=== PATIENT | male | born 1955 | race Caucasian/White ===

== ENCOUNTER → 2021-04-09 11:13 | Outpatient (BNVA) | payer MEDICARE, MEDICAID, SELFPAY | PROVIDERS: PCP Internal Medicine; Visit Provider Nurse Practitioner Family | DX: G62.9 Polyneuropathy, unspecified (principal); G25.81 Restless legs syndrome; R25.1 Tremor, unspecified; R90.82 White matter disease, unspecified; M54.2 Cervicalgia | CPT/HCPCS: 99212 ==

== ENCOUNTER → 2021-06-30 08:45 | Outpatient (BNVA) | payer MEDICARE, MEDICAID, SELFPAY | PROVIDERS: Visit Provider Nurse Practitioner Family | DX: G25.81 Restless legs syndrome (principal); G62.9 Polyneuropathy, unspecified; R90.82 White matter disease, unspecified | CPT/HCPCS: 99212 ==

== ENCOUNTER → 2021-10-06 08:37 | Outpatient (BNVA) | payer MEDICARE, MEDICAID, SELFPAY | PROVIDERS: Visit Provider Nurse Practitioner Family | DX: Z09 Encounter for follow-up examination after completed treatment for conditions other than malignant neoplasm (principal); G25.81 Restless legs syndrome; R56.9 Unspecified convulsions; G62.9 Polyneuropathy, unspecified; R51.9 Headache, unspecified | CPT/HCPCS: 99212 ==

== ENCOUNTER → 2022-01-14 07:46 | Outpatient (BNVA) | payer MEDICARE, MEDICAID, SELFPAY | PROVIDERS: Visit Provider Nurse Practitioner Family | DX: G25.81 Restless legs syndrome (principal); R56.9 Unspecified convulsions; G45.9 Transient cerebral ischemic attack, unspecified; R51.9 Headache, unspecified | CPT/HCPCS: 99212 ==

== ENCOUNTER → 2022-03-27 09:34 | Outpatient (BNVA) | payer MEDICARE, MEDICAID, SELFPAY | PROVIDERS: PCP Physician Assistant; Visit Provider Dietitian, Registered | DX: E11.22 Type 2 diabetes mellitus with diabetic chronic kidney disease (principal); N18.4 Chronic kidney disease, stage 4 (severe); Z71.3 Dietary counseling and surveillance | CPT/HCPCS: 97802 ==

== ENCOUNTER → 2022-04-15 07:35 | Outpatient (BNVA) | payer MEDICARE, MEDICAID, SELFPAY | PROVIDERS: PCP Physician Assistant; Visit Provider Nurse Practitioner Family | DX: R56.9 Unspecified convulsions (principal); R51.9 Headache, unspecified; G45.9 Transient cerebral ischemic attack, unspecified; G25.81 Restless legs syndrome | CPT/HCPCS: 99212 ==

== ENCOUNTER → 2022-08-13 07:39 | Outpatient (BNVA) | payer MEDICARE, MEDICAID, SELFPAY | PROVIDERS: PCP Physician Assistant; Visit Provider Nurse Practitioner Family | DX: G25.81 Restless legs syndrome (principal); R56.9 Unspecified convulsions; R51.9 Headache, unspecified | CPT/HCPCS: 99212 ==

== ENCOUNTER 2022-12-15 10:26 | Outpatient (AMB) | payer MEDICARE, MEDICAID, SELFPAY ==
--- NOTE | 2022-12-15 10:29 | A.OFFVIS_ITS ---
Intake Vital Signs 12/15/22 10:41 Height 5 ft 9 in Weight 203 lb BMI 30.0 BP 128/74 Blood Pressure Location Rt brachial Position Sitting Pulse 72 Pulse Source Pulse Oximeter Pulse Oximetry (%) 99 Oxygen Delivery Method Room Air Intake Visit Reasons: 4M restless leg-lvm Intake Note: Patient presents for 4 month restless leg, Patient states they have gotten worst since going on dialysis. Allergies acetaminophen [From Vicodin] Allergy (Mild, Verified 12/15/22 10:42) unknown aspirin Allergy (Mild, Verified 12/15/22 10:42) unknown hydrocodone [From Vicodin] Allergy (Mild, Verified 12/15/22 10:42) unknown ibuprofen Allergy (Mild, Verified 12/15/22 10:42) unknown Medication List - Last Reconciled 12/15/22 by SUDEEP Mei amlodipine mg PO ONCE atorvastatin 40 mg PO DAILY carvedilol 12.5 mg PO BID chlorthalidone mg PO ONCE diclofenac sodium 1% 2 - 4 grams topical QID PRN 14 days docusate sodium (Colace) 100 mg PO BID PRN 30 days duloxetine 60 mg PO DAILY 30 days famotidine mg PO ONCE furosemide 20 mg PO DAILY hydralazine 25 mg PO DAILY insulin aspart U-100 (Novolog FlexPen U-100 Insulin aspart) subcut insulin glargine (Lantus Solostar U-100 Insulin) units subcut levetiracetam 500 mg PO BID 30 days levothyroxine mcg PO ONCE lisinopril mg PO DAILY nifedipine ER mg PO oxycodone 5 - 10 mg (1 - 2 x 5 mg) PO BEDTIME 30 days pen needle, diabetic (BD Ultra-Fine Mini Pen Needle) As directed riboflavin (vitamin B2) 400 mg PO DAILY 30 days sennosides (senna) 17.2 mg (2 x 8.6 mg) PO BEDTIME PRN 30 days tacrolimus 0.5 mg PO BID tacrolimus 1 mg PO BID tamsulosin mg PO HPI HPI Comments History of Present Illness Details 67-yr-old male presents for f/u visit. Pt endorses the following interval medical history changes: Shortly after his last visit, he had a hospitalization for inability to void. He states he was found to be in fluid overload d/t ESRD. Pt has since started on hemodialysis, which he is overall tolerating well. He states he slowly weaned off his diabetic meds- as his blood sugras were running low and his PCP agreed to stop them w/ his HgA1C < 6%. He does not taht his RLS s/s are worse when he is at dialysis (4 hr session 3 x's per week) and for the rest of the day after dialysis. He may still have some leg cramps while at dialysis- he does continue on his Mag supplement. He feels that he just has to let his body relax. He waits to take the oxycodone until the end of the day. He is having increased braun-back/neck pain which moves throughout the spine. This is worse since starting dialysis. He is overall weaker, has less endurance. Notes he was previously used to being active- always had something to do, but now he has dialysis and is not doing as much overall. No interval seizures. PFSH Medical History HLD (hyperlipidemia) Surgical History History of carpal tunnel surgery Hx of liver transplant Social History Alcohol intake: former Patient Tobacco Use Status: Former Tobacco user Quit Date: 30-35 years ago. Substance Use Type: Marijuana Review of Systems Const All systems reviewed & are unremarkable except as noted in HPI and below Physical Exam Vital Signs: Last Vital Signs Pulse 72 12/15/22 10:41 BP 128/74 12/15/22 10:41 Pulse Ox 99 12/15/22 10:41 Oxygen Delivery Method Room Air 12/15/22 10:41 BMI result Body Mass Index 30.0 Const General: cooperative and no acute distress Orientation/consciousness: patient oriented x3 HEENT Head: Yes normocephalic Resp Effort & Inspection: normal respiratory effort and able to speak in complete sentences Neuro Other: Slow to stand, steady slow gait General: patient oriented x3 and CN's II-XI intact bilaterally Cognition (Neuro): normal cognition Motor exam (neuro): 5/5 motor strength present throughout Deep tendon reflexes (DTR's): Right triceps reflex intensity grade: 2+, Left triceps reflex intensity grade: 2+, Rt Biceps (C5, C6): 2+, Left biceps reflex intensity grade: 2+, Right brachioradialis reflex intensity grade: 2+, Left brachioradialis reflex intensity grade: 2+, Right patellar reflex intensity grade: 1+ and Left patellar reflex intensity grade: 1+ Psych Appearance: grossly normal Mental Status: mental status grossly normal Speech and movement: Normal speech and movement present Affect: normal affect Attitude: cooperative Thought process: Normal thought process present Thought content: Normal thought content present Insight: Good insight present (Psych) Judgement: Good judgement present (Psych) Assessment & Plan Assessment & Plan (1) Restless leg syndrome: Code(s): G25.81 - Restless legs syndrome (2) Cervicalgia: Comment: Moderate multilevel degenerative spondyloarthropathy. Code(s): M54.2 - Cervicalgia (3) TIA (transient ischemic attack): Comment: Oct 2021. Code(s): G45.9 - Transient cerebral ischemic attack, unspecified (4) Convulsion: Comment: ? seizure, ? functional non-epileptic seizure Code(s): R56.9 - Unspecified convulsions Plan For neck and back pain- Will refer to pain management. Will request previous imaging from [facility]. ? For RLS: Add Oxycodone 5-10mg prior to dialysis treatment (or alternately 5mg before and 5mg after dialysis). Continue Oxycodone 5-10mg qhs. For h/o TIA: Continue to optimize CV risk reduction strategies: ASA 81mg qhs, Atorvastatin 40mg qhs, BP regimen, dialysis Pt has wenaed off his diabetes medications- last HgA1C was < 6% Continue f/u w/ renal. ? For seizure: Continue Keppra 500mg bid. ? For headache: Continue riboflavin and magnesium as needed for headache. ? f/u in 3-4 months or sooner with any new/worsening s/s. Orders: Referrals Pain Management Referral M54.2 - Cervicalgia, M54.9 - Dorsalgia, unspecified Medications: Changed From oxycodone quantity may be filled for less 5 - 10 mg (1 - 2 x 5 mg) PO BEDTIME 30 days 60 tabs 0RF restless leg(s) To oxycodone 1-2 tabs qhs and 1-2 tabs 3 x's per week prior to dialysis orally .; quantity may be filled for less 28 days 80 tabs 0RF restless leg(s) Coding Level of Care Code Est Pt Level 4 (75874) Diagnoses Restless leg syndrome G25.81 Cervicalgia M54.2 TIA (transient ischemic attack) G45.9 Convulsion R56.9
[2022-12-15 10:41] VITALS: BP 128/74; PULSE 72; O2SAT 99
== END 2022-12-15 11:14 | disposition home or self-care (01) ==
PROVIDERS: PCP Physician Assistant; Visit Provider Nurse Practitioner Family
DX: G25.81 Restless legs syndrome (principal); M54.2 Cervicalgia; G45.9 Transient cerebral ischemic attack, unspecified; R56.9 Unspecified convulsions
CPT/HCPCS: 99214

== ENCOUNTER → 2022-12-15 10:26 | Outpatient (BNVA) | payer MEDICARE, MEDICAID, SELFPAY | PROVIDERS: PCP Physician Assistant; Visit Provider Nurse Practitioner Family | DX: G25.81 Restless legs syndrome (principal); R56.9 Unspecified convulsions; M54.2 Cervicalgia; G45.9 Transient cerebral ischemic attack, unspecified | CPT/HCPCS: 99212 ==

== ENCOUNTER 2023-02-04 11:28 | Outpatient (REF) | payer OTHER, SELFPAY ==
--- NOTE | ~2023-02-04 | MR_ITS ---
EXAMINATION: MR CERVICAL SPINE WITHOUT CONTRAST CLINICAL INFORMATION: 67-year-old with neck pain radiating down back and between shoulder blades. History of spinal stenosis. COMPARISON: 06/18/2020 MRI. TECHNIQUE: MRI of the cervical spine was obtained using routine sequences without contrast. FINDINGS: ALIGNMENT: Redemonstrated is lordotic reversal centered at C6-C7 stable in appearance. Slight retrolisthesis at C3-C4 is stable. CRANIOCERVICAL JUNCTION/C1-C2 ARTICULATIONS: Intact and aligned. VISUALIZED INTRACRANIAL STRUCTURES: Small focus of low T1/high T2 linear signal in the lesley is stable from previous exam and is consistent with a small chronic infarct as noted on previous MRI of the brain. VERTEBRAL BODIES: Stable vertebral body heights. No interval compression fractures. DISC SPACES AND ENDPLATES: There is predominant ankylosis at the C6-C7 intervertebral disc space with marginal osteophytic ridging with severe disc space height loss, disc desiccation, Schmorl's nodes and spondylosis at C7-T1 stable in appearance. Bfadsqup-rb-pxkrrh disc space height loss at C5-C6 slightly progressed from previous exam with disc desiccation, Schmorl's nodes and spondylosis. Ccnyijnf-hc-sgeojd disc space height loss at C3-C4 progressed from previous study. Schmorl's nodes, disc desiccation and spondylosis at this level also noted. BONE MARROW: No bone marrow edema. Diffusely heterogeneous bone marrow signal intensity seen throughout the osseous structures similar to the previous exam is a nonspecific finding. Degenerative fatty marrow signal changes noted at C6 and C7 and at the C7-T1 and C5-C6 endplates unchanged. Type II marrow signal changes along the endplates at C3-C4 are new since the previous exam. C2-C3: No disc herniation or canal stenosis. Ligamentum flavum thickening noted with minor facet arthropathy without significant neural foraminal stenosis. C3-C4: Broad-based disc osteophyte complex similar to the previous exam, with effacement of the ventral dural sac, with ventral cord impingement progressed from previous study. Ligamentum flavum thickening has progressed from previous exam. There is wivylovp-kp-ppgawd central spinal canal stenosis also progressed from previous exam. No cord edema or syrinx. There is uncovertebral spurring and facet arthropathy bilaterally with severe left-sided and hthhlfgx-ei-raevrb right-sided neural foraminal stenosis progressed from previous study. C4-C5: Central to right paramedian disc protrusion with encroachment on the ventral dural sac and mild right-sided ventral cord deformity stable in appearance. Ligamentum flavum thickening has progressed from previous exam now with moderate central spinal canal stenosis slightly progressed. There is uncovertebral spurring and facet arthropathy more prominent on current study, with moderate bilateral neural foraminal stenosis, progressed from previous study. C5-C6: Broad-based disc osteophyte complex is again noted with flattening of the ventral dural sac asymmetric to the right with acrq-wd-epqyngbm right-sided ventral cord deformity/cord volume loss and moderate spinal canal stenosis largely unchanged. There is uncovertebral spurring bilaterally with severe right-sided and xmswngkh-so-qtusdm left-sided neural foraminal stenosis largely unchanged. C6-C7: Ankylosis of the intervertebral disc space with posterior osteophytic ridging and flattening of the dural sac is largely unchanged without cord impingement. Mild central spinal canal narrowing is unchanged. Fxpa-dx-vukiifdj right-sided neural foraminal stenosis is stable. C7-T1: Broad-based posterolateral disc osteophyte complex noted bilaterally, right more than left similar to the previous exam with slight flattening of the dural sac without cord impingement or canal stenosis. There is mild facet arthrosis bilaterally unchanged with moderate right and mild left-sided foraminal stenosis stable in appearance. T1-T2: No disc herniation or canal stenosis. No significant DJD or neural foraminal stenosis. SPINAL CORD: The cervical and visualized upper thoracic spinal cord shows faintly increased T2 signal intensity on the sagittal STIR images at the C3-C4 level but less evident on the current study than on the prior exam, suggesting spondylitic myelopathy in conjunction with the above findings. Otherwise normal signal intensity. EXTRACRANIAL SOFT TISSUES: The visualized extracranial head/neck soft tissues are unremarkable within the limitations of the study. Normal signal voids are seen in the visualized major arterial and venous structures. Note is made of a 0.8 x 0.6 cm cystic-appearing lesion in the superficial lobe of the left parotid gland increased in size from the previous exam. Recommend correlation with ultrasound. MR/MR cervical spine wo con IMPRESSION: 1. Lordotic reversal centered at C6-C7 stable in appearance with slight retrolisthesis at C3-C4 stable in appearance. 2. Multilevel DDD and spondylosis with some progression of disc space height loss at C3-C4 and C5-C6 with multilevel disc osteophyte complexes and disc protrusions as described above with progression of spinal canal stenosis at C3-C4 and stable right-sided ventral cord deformity at C4-C5 with progression of spinal canal stenosis at C4-C5 now with moderate central spinal canal stenosis at this level. Moderate spinal canal stenosis C5-C6 and mild spinal canal stenosis at C6-C7 are stable. Cord compression at C3-C4 has progressed. 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 3. Multilevel DJD with multilevel bilateral neural foraminal stenosis as detailed by level above, with progression at C3-C4 and C4-C5 but otherwise stable at other levels. 4. Subcentimeter cystic-appearing lesion in the superficial lobe of the left parotid gland increased in size from previous exam. Recommend correlation with ultrasound to further assess this. Cannot exclude a parotid neoplasm. The [facility] staff will call to confirm receipt of this report with acknowledgement of the findings and any recommendations.
== END 2023-02-04 11:29 | disposition home or self-care (01) ==
LOC: HO.MRI 11:28
PROVIDERS: Visit Provider Nurse Practitioner Family
DX: M54.2 Cervicalgia (principal); M48.02 Spinal stenosis, cervical region; M14.68 Charcot's joint, vertebrae
CPT/HCPCS: 72141

== ENCOUNTER 2023-03-04 12:16 | Outpatient (AMB) | payer OTHER, SELFPAY ==
--- NOTE | 2023-03-04 13:07 | A.OFFVIS_ITS ---
Intake Vital Signs 03/04/23 13:08 Height 5 ft 9 in Weight 206 lb 4 oz BMI 30.5 BP 118/60 Blood Pressure Location Rt brachial Position Sitting Respiration 16 Pulse 68 Pulse Source Pulse Oximeter Pulse Oximetry (%) 94 Oxygen Delivery Method Room Air Intake Visit Reasons: Dorsalgia /Lvm Allergies acetaminophen [From Vicodin] Allergy (Mild, Verified 03/04/23 12:59) unknown aspirin Allergy (Mild, Verified 03/04/23 12:59) unknown hydrocodone [From Vicodin] Allergy (Mild, Verified 03/04/23 12:59) unknown ibuprofen Allergy (Mild, Verified 03/04/23 12:59) unknown HPI HPI Comments History of Present Illness Details Dave is a very pleasant 67-year-old male who presents the office today for evaluation management of his chronic neck pain. Patient referred here by Neurology for chronic neck pain with recent MRI showing significant spinal stenosis. He has also been referred to neuro spine office, he has an appointment 03/23/2023. Patient reports that he has been suffering with this neck pain for 15 years, states had a recent MRI which showed that the stenosis was worsening. He reports pain midline cervical radiating across the shoulders and down his arms to the elbows bilaterally. He does endorse bilateral upper extremity weakness. Pain is worse with movement, cervical range of motion, palpation it and raising of his arms. He denies numbness or tingling of either upper extremity. Patient has a history of liver transplant 04/30/2017, followed by [facility] in [facility]. Is currently taking immunosuppressant therapy for anti- rejection. Patient recently diagnosed with end-stage renal disease and is doing 3 times weekly hemodialysis. Patient has not done physical therapy, he is not interested in trying physical therapy. He has not attempted chiropractor, acupuncture, massage or injections previously. He has no history of surgery on his neck. He currently is taking oxycodone 5 mg at night for restless legs, she also gives him a dose to take before dialysis but otherwise will not increase his dose or frequency. Is not able to take anti-inflammatory medication due to his end-stage renal disease. He does take Tylenol though he is aware that with his history of liver transplant is not favorable. Pain today is rated as an 8/10. Constant, worse in the mornings, during the day in the evening. In terms of muscle damage condition is described as aching, spasming, hot, burning, shooting, tiring, exhausting, squeezing and throbbing. Pain is negatively impacting patient's enjoyment of life, general activity, mood, recreational activities, relationships with people, sleep and walking. PFSH Medical History HLD (hyperlipidemia) Surgical History History of carpal tunnel surgery Hx of liver transplant Social History Alcohol intake: former Patient Tobacco Use Status: Former Tobacco user Quit Date: 30-35 years ago. Substance Use Type: Marijuana Review of Systems Const All systems reviewed & are unremarkable except as noted in HPI and below Physical Exam Vital Signs: Last Vital Signs Pulse 68 03/04/23 13:08 Resp 16 03/04/23 13:08 BP 118/60 03/04/23 13:08 Pulse Ox 94 03/04/23 13:08 Oxygen Delivery Method Room Air 03/04/23 13:08 BMI result Body Mass Index 30.5 General: awake, alert, oriented. Answers questions appropriately. Appears Frail. Skin: warm, dry, intact Respiratory: No cough, audible wheezing or stridor. MS: No obvious swelling or deformities. Cervical Spine: Visible inspection without gross abnormality Tenderness throughout bilateral upper trapezius muscles. Tender to palpation over paraspinal muscles Tender to palpation over cervical vertebrae Decreased cervical ROM in all planes Spurling compression test positive BUE strength 5/5 DTR symmetrical and intact bilaterally. 2+ radial pulses. Neurological: Oriented to person, place, time and situation. Thought process intact. Ambulates with cane. Psychiatric: Appropriate mood and affect. Good judgment and insight. Results Reviewed Results Reviewed: 02/04/2023 MR/MR cervical spine wo con FINDINGS: ALIGNMENT: Redemonstrated is lordotic reversal centered at C6-C7 stable in appearance. Slight retrolisthesis at C3-C4 is stable. CRANIOCERVICAL JUNCTION/C1-C2 ARTICULATIONS: Intact and aligned. VISUALIZED INTRACRANIAL STRUCTURES: Small focus of low T1/high T2 linear signal in the lesley is stable from previous exam and is consistent with a small chronic infarct as noted on previous MRI of the brain. VERTEBRAL BODIES: Stable vertebral body heights. No interval compression fractures. DISC SPACES AND ENDPLATES: There is predominant ankylosis at the C6-C7 intervertebral disc space with marginal osteophytic ridging with severe disc space height loss, disc desiccation, Schmorl's nodes and spondylosis at C7-T1 stable in appearance. Gvroyxyw-gh-nisrlo disc space height loss at C5-C6 slightly progressed from previous exam with disc desiccation, Schmorl's nodes and spondylosis. Uavuhmww-al-yihkok disc space height loss at C3-C4 progressed from previous study. Schmorl's nodes, disc desiccation and spondylosis at this level also noted. BONE MARROW: No bone marrow edema. Diffusely heterogeneous bone marrow signal intensity seen throughout the osseous structures similar to the previous exam is a nonspecific finding. Degenerative fatty marrow signal changes noted at C6 and C7 and at the C7-T1 and C5-C6 endplates unchanged. Type II marrow signal changes along the endplates at C3-C4 are new since the previous exam. C2-C3: No disc herniation or canal stenosis. Ligamentum flavum thickening noted with minor facet arthropathy without significant neural foraminal stenosis. C3-C4: Broad-based disc osteophyte complex similar to the previous exam, with effacement of the ventral dural sac, with ventral cord impingement progressed from previous study. Ligamentum flavum thickening has progressed from previous exam. There is wimqsthy-rn-qseziy central spinal canal stenosis also progressed from previous exam. No cord edema or syrinx. There is uncovertebral spurring and facet arthropathy bilaterally with severe left-sided and pgxnwsoz-sr-pqfhlb right-sided neural foraminal stenosis progressed from previous study. C4-C5: Central to right paramedian disc protrusion with encroachment on the ventral dural sac and mild right-sided ventral cord deformity stable in appearance. Ligamentum flavum thickening has progressed from previous exam now with moderate central spinal canal stenosis slightly progressed. There is uncovertebral spurring and facet arthropathy more prominent on current study, with moderate bilateral neural foraminal stenosis, progressed from previous study. C5-C6: Broad-based disc osteophyte complex is again noted with flattening of the ventral dural sac asymmetric to the right with sasi-ou-zqlwhijn right-sided ventral cord deformity/cord volume loss and moderate spinal canal stenosis largely unchanged. There is uncovertebral spurring bilaterally with severe right-sided and erboaqip-qa-ynpcsd left-sided neural foraminal stenosis largely unchanged. C6-C7: Ankylosis of the intervertebral disc space with posterior osteophytic ridging and flattening of the dural sac is largely unchanged without cord impingement. Mild central spinal canal narrowing is unchanged. Spmo-mq-zopxjscn right-sided neural foraminal stenosis is stable. C7-T1: Broad-based posterolateral disc osteophyte complex noted bilaterally, right more than left similar to the previous exam with slight flattening of the dural sac without cord impingement or canal stenosis. There is mild facet arthrosis bilaterally unchanged with moderate right and mild left-sided foraminal stenosis stable in appearance. T1-T2: No disc herniation or canal stenosis. No significant DJD or neural foraminal stenosis. SPINAL CORD: The cervical and visualized upper thoracic spinal cord shows faintly increased T2 signal intensity on the sagittal STIR images at the C3-C4 level but less evident on the current study than on the prior exam, suggesting spondylitic myelopathy in conjunction with the above findings. Otherwise normal signal intensity. EXTRACRANIAL SOFT TISSUES: The visualized extracranial head/neck soft tissues are unremarkable within the limitations of the study. Normal signal voids are seen in the visualized major arterial and venous structures. Note is made of a 0.8 x 0.6 cm cystic-appearing lesion in the superficial lobe of the left parotid gland increased in size from the previous exam. Recommend correlation with ultrasound. IMPRESSION: 1. Lordotic reversal centered at C6-C7 stable in appearance with slight retrolisthesis at C3-C4 stable in appearance. 2. Multilevel DDD and spondylosis with some progression of disc space height loss at C3-C4 and C5-C6 with multilevel disc osteophyte complexes and disc protrusions as described above with progression of spinal canal stenosis at C3-C4 and stable right-sided ventral cord deformity at C4-C5 with progression of spinal canal stenosis at C4-C5 now with moderate central spinal canal stenosis at this level. Moderate spinal canal stenosis C5-C6 and mild spinal canal stenosis at C6-C7 are stable. Cord compression at C3-C4 has progressed. 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 3. Multilevel DJD with multilevel bilateral neural foraminal stenosis as detailed by level above, with progression at C3-C4 and C4-C5 but otherwise stable at other levels. 4. Subcentimeter cystic-appearing lesion in the superficial lobe of the left parotid gland increased in size from previous exam. Recommend correlation with ultrasound to further assess this. Cannot exclude a parotid neoplasm. Assessment & Plan Assessment & Plan (1) Cervical stenosis of spine: Code(s): M48.02 - Spinal stenosis, cervical region (2) Neuropathic spondyloarthropathy of cervical spine: Code(s): M14.68 - Charcot's joint, vertebrae (3) Neuroforaminal stenosis of cervical spine: Code(s): M48.02 - Spinal stenosis, cervical region (4) Cervicalgia: Comment: Moderate multilevel degenerative spondyloarthropathy. Code(s): M54.2 - Cervicalgia Plan Dave is a very pleasant 67 year old male who presented to the office today for evaluation and management of his chronic neck pain. Patient with significant spinal stenosis, bilateral upper extremity weakness and worsening pain. Appt is scheduled with Neurosurgical office 03/23/2023. He adamantly refuses physical therapy. History of liver transplant on immunosuppresants and currently on HD for ESRD. Discussed with patient high risk for infection with any procedures. Patient currently taking 5mg oxycodone prior to dialysis and able to repeat after dialysis. Patient reports this is not effective in controlling his pain throughout the day. He would like to increase his doses, advised patient that we do not currently prescribe opioid medications and chronic opioid program is closed to new patients. Record request signed for Jean to obtain records relating to liver transplant and Dr Walsh for records related to kidney disease. Patient will follow up with neurosurgery as planned. Follow up in our office if no surgery is warranted per their visit to amend treatment plan. All questions and concerns were addressed, patient agrees with plan. Coding Level of Care Code New Pt Level 4 (78754) Diagnoses Cervical stenosis of spine M48.02 Neuropathic spondyloarthropathy of cervical spine M14.68 Neuroforaminal stenosis of cervical spine M48.02 Cervicalgia M54.2
[2023-03-04 13:08] VITALS: BP 118/60; PULSE 68; RESP 16; O2SAT 94; BMI 30.5
== END 2023-03-04 13:55 | disposition home or self-care (01) ==
PROVIDERS: PCP Physician Assistant; Referring Provider Nurse Practitioner Family; Visit Provider Registered Nurse Emergency
DX: M48.02 Spinal stenosis, cervical region (principal); M14.68 Charcot's joint, vertebrae; M54.2 Cervicalgia
CPT/HCPCS: 99203

== ENCOUNTER → 2023-03-04 12:16 | Outpatient (BNVA) | payer OTHER, SELFPAY | PROVIDERS: PCP Physician Assistant; Referring Provider Nurse Practitioner Family; Visit Provider Registered Nurse Emergency | DX: M48.02 Spinal stenosis, cervical region (principal); M14.68 Charcot's joint, vertebrae; M54.2 Cervicalgia | CPT/HCPCS: 99202 ==

== ENCOUNTER 2023-03-23 12:33 | Outpatient (REF) | payer OTHER, SELFPAY ==
--- NOTE | ~2023-03-23 | XR_ITS ---
EXAMINATION: XR CERVICAL SPINE CLINICAL INFORMATION: Cervical spinal stenosis. COMPARISON: Portions of the MRI cervical spine dated 02/04/2023. TECHNIQUE: Frontal and lateral (neutral, flexion and extension) views of the cervical spine were obtained. FINDINGS: Vertebral body heights and alignment are normal. At C3-C4, there is moderate disc space narrowing. At C5-C6, there is moderate disc space narrowing. There is partial fusion at C6-C7. No acute fracture or spondylolisthesis is seen. There is no instability with flexion or extension. The posterior elements are intact. The dens is intact. No prevertebral soft tissue swelling is seen. XR/XR cervical spine 4V IMPRESSION: 1. There is multi-level cervical degenerative disc disease, spondylosis and facet arthropathy. Degenerative disc disease is most pronounced at C6-C7, where it is severe, and it C3-C4 and C5-C6, where it is moderate. 2. There is no instability with flexion or extension.
== END 2023-03-23 12:34 | disposition home or self-care (01) ==
LOC: HO.HOSX 12:33
PROVIDERS: PCP Physician Assistant; Visit Provider Physician Assistant
DX: M48.02 Spinal stenosis, cervical region (principal); N18.6 End stage renal disease; Z99.2 Dependence on renal dialysis; Z87.19 Personal history of other diseases of the digestive system; Z94.4 Liver transplant status
CPT/HCPCS: 72050; 99202

== ENCOUNTER 2023-03-23 12:33 | Outpatient (AMB) | payer OTHER, SELFPAY ==
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
== END 2023-03-23 14:25 | disposition home or self-care (01) ==
PROVIDERS: PCP Physician Assistant; Referring Provider Registered Nurse Emergency; Visit Provider Physician Assistant
DX: M48.02 Spinal stenosis, cervical region (principal)
CPT/HCPCS: 99204

== ENCOUNTER 2023-04-22 08:22 | Outpatient (AMB) | payer OTHER, SELFPAY ==
--- NOTE | 2023-04-22 08:32 | A.OFFVIS_ITS ---
Intake Intake Visit Reasons: 5M follow up-Confirmed Intake Note: Patient following up 5 month. no issues or concerns Allergies acetaminophen [From Vicodin] Allergy (Mild, Verified 03/04/23 12:59) unknown aspirin Allergy (Mild, Verified 03/04/23 12:59) unknown hydrocodone [From Vicodin] Allergy (Mild, Verified 03/04/23 12:59) unknown ibuprofen Allergy (Mild, Verified 03/04/23 12:59) unknown HPI HPI Comments History of Present Illness Details 67-yr-old male presents for f/u televide o visit via [facility]. 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 Increased subcentimeter cystic left parotid gland lesion. Pt reports he did have pain management and neurosurgery f/u. Was told he is not a surgical candidate. The neck pain is better if he does not do as much. But is worse with turning his head to the side. Neurosurgery did give him a soft collar which he uses during dialysis or if up and moving around more. He states he will stop driving when his insurance expires, as the neck pain limits his ability to turn his head while driving. He is scheduled for left parotid gland US today. His Restless leg symptoms are stable. He is using the extra Oxycodone prior to dialysis, which helps him sit more calmly through his sessions. Denies any seizure activity. Compliant w/ Keppra. Can have some headaches at the end of dialysis, these resolve once he returns home and rests. He notes that he is getting additional B2 at dialysis. 02/04/23, MR/MR cervical spine wo con IMPRESSION: 1. Lordotic reversal centered at C6-C7 s table in appearance with slight retrolisthesis at C3-C4 stable in appearance. 2. Multilevel DDD and spondylosis with s ome progression of disc space height loss at C3-C4 and C5-C6 with multilevel disc osteophyte complexes and disc protrusions as described above with progression of spinal canal stenosis at C3-C4 and stable right-sided ventral cord deformity at C4-C5 with progression of spinal canal stenosis at C4-C5 now with moderate central spinal canal stenosis at this level. Moderate spinal canal stenosis C5-C6 and mild spinal canal stenosis at C6-C7 are stable. Cord compression at C3-C4 has progressed. 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 3. Multilevel DJD with multilevel bilate ral neural foraminal stenosis as detailed by level above, with progression at C3-C4 and C4-C5 but otherwise stable at other levels. 4. Subcentimeter cystic-appearing lesion in the superficial lobe of the left parotid gland increased in size from previous exam. Recommend correlation with ultrasound to further assess this. Cannot exclude a parotid neoplasm. PFSH Medical History HLD (hyperlipidemia) Surgical History Hx of liver transplant History of carpal tunnel surgery Social History Alcohol intake: former Patient Tobacco Use Status: Former Tobacco user Quit Date: 30-35 years ago. Substance Use Type: Marijuana Physical Exam Const General: cooperative and no acute distress Orientation/consciousness: patient oriented x3 Resp Effort & Inspection: normal respiratory effort and able to speak in complete sentences Neuro General: patient oriented x3 Cognition (Neuro): normal cognition Psych Appearance: grossly normal Mental Status: mental status grossly normal Speech and movement: Normal speech and movement present Affect: normal affect Attitude: cooperative Assessment & Plan Assessment & Plan (1) Restless leg syndrome: Code(s): G25.81 - Restless legs syndrome (2) Cyst of left parotid gland: Code(s): K11.6 - Mucocele of salivary gland (3) Headache: Code(s): R51.9 - Headache, unspecified (4) Neuropathic spondyloarthropathy of cervical spine: Code(s): M14.68 - Charcot's joint, vertebrae (5) Neuroforaminal stenosis of cervical spine: Code(s): M48.02 - Spinal stenosis, cervical region (6) Convulsion: Comment: ? seizure, ? functional non-epileptic seizure Code(s): R56.9 - Unspecified convulsions Plan For neck and back pain- Pt declines to f/u with pain management at this time. Consider referring back or to pain managemnt in [place] if s/s worsen. Left parotid ultrasound as scheduled. ? For RLS: Continue Oxycodone 5-10mg prior to dialysis treatment (or alternately 5mg before and 5mg after dialysis). Continue Oxycodone 5-10mg qhs. ? For h/o TIA: Continue to optimize CV risk reduction strategies: ASA 81mg qhs, Atorvastatin 40mg qhs, BP regimen, dialysis Pt previously weaned off his diabetes medications- last HgA1C was < 6% Continue f/u w/ renal. ? For seizure: Continue Keppra 500mg bid. ? For headache: Continue riboflavin and magnesium as needed for headache. ? f/u in 3-4 months or sooner with any new/worsening s/s. Telehealth Telehealth Location of provider rendering services: practice address Location of patient: address on file Patient Identification confirmed using: Name, : Yes Telehealth method: video Patient verbally consented to treatment: Yes Patient verbally consented to billing insurance company: Yes Patient informed of any privacy concerns related to visit: Yes Minutes spent on Phone/Video with Pt.: 15 Coding Level of Care Code Tele Est Pt Level 4 (60507) Diagnoses Restless leg syndrome G25.81 Cyst of left parotid gland K11.6 Headache R51.9 Neuropathic spondyloarthropathy of cervical spine M14.68 Neuroforaminal stenosis of cervical spine M48.02 Convulsion R56.9
== END 2023-04-22 08:56 | disposition home or self-care (01) ==
LOC: HO.HSMS 08:22
PROVIDERS: PCP Physician Assistant; Visit Provider Nurse Practitioner Family
DX: G25.81 Restless legs syndrome (principal); K11.6 Mucocele of salivary gland; R51.9 Headache, unspecified; M14.68 Charcot's joint, vertebrae; M48.02 Spinal stenosis, cervical region; R56.9 Unspecified convulsions
CPT/HCPCS: 99214

== ENCOUNTER 2023-04-22 13:21 | Outpatient (REF) | payer OTHER, SELFPAY ==
--- NOTE | ~2023-04-22 | US_ITS ---
EXAMINATION: US SOFT TISSUE HEAD/NECK CLINICAL INFORMATION: Question cyst of left parotid. COMPARISON: None available. TECHNIQUE: Linear transducer clemons-scale and color Doppler examination with attention to the region of the left parotid gland. FINDINGS: Targeted ultrasound images were obtained by the phys asst in the area of the left parotid gland. Radiologist was not in attendance. Images were later provided for interpretation. Multiple lymph nodes identified in the left parotid gland with examples measuring 1.0 x 0.4 x 1.1 cm, and 1.0 x 0.4 x 0.8 cm with echogenic jon. A 1.0 cm x 0.4 x 0.9 cm lymph node with echogenic hilum in the left submandibular region. A 0.8 x 0.6 x 0.8 cm cystic focus along the inferior aspect of the left parotid difficult to fully characterize due to limited visualization. US/US soft tiss head and/or neck IMPRESSION: 1. Multiple lymph nodes in and adjacent to the left parotid gland. 2. Cystic area along the inferior aspect of the left parotid gland. 3. Correlation with clinical exam and possible dedicated imaging with MRI recommended for further evaluation.
== END 2023-04-22 13:22 | disposition home or self-care (01) ==
LOC: HO.US 13:21
PROVIDERS: PCP Physician Assistant; Visit Provider Nurse Practitioner Family
DX: K11.6 Mucocele of salivary gland (principal); R51.9 Headache, unspecified; M14.68 Charcot's joint, vertebrae; M48.02 Spinal stenosis, cervical region; R56.9 Unspecified convulsions
CPT/HCPCS: 76536

== ENCOUNTER 2023-08-05 14:59 | Outpatient (AMB) | payer OTHER, SELFPAY ==
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
[2023-08-05 15:26] VITALS: BP 115/60; PULSE 73; O2SAT 97; BMI 31.2
== END 2023-08-05 16:33 | disposition home or self-care (01) ==
PROVIDERS: PCP Physician Assistant; Visit Provider Nurse Practitioner Family
DX: G25.81 Restless legs syndrome (principal); R56.9 Unspecified convulsions; G45.9 Transient cerebral ischemic attack, unspecified; K11.6 Mucocele of salivary gland
CPT/HCPCS: 99214

== ENCOUNTER → 2023-08-05 14:59 | Outpatient (BNVA) | payer OTHER, SELFPAY | PROVIDERS: PCP Physician Assistant; Visit Provider Nurse Practitioner Family | DX: G25.81 Restless legs syndrome (principal); G45.9 Transient cerebral ischemic attack, unspecified; R56.9 Unspecified convulsions; K11.6 Mucocele of salivary gland | CPT/HCPCS: 99212 ==

== ENCOUNTER 2024-03-07 08:59 | Outpatient (AMB) | payer OTHER, SELFPAY ==
--- OUTSIDE RECORDS SUMMARY | 2024-03-07 09:31 | XMS_ITS ---
Author Name [facility] Address [address] [place] [id number] Phone [phone] Organization [facility] e, NA DOCUMENT DISCLAIMER Multiple document versions may exist, please be sure you review the latest version. The information in the [facility] Continuity of Care Document represents a summary of certain health and medical information. It may not contain the complete medical history for the patient and should be independently verified. The represented time in the document is Eastern Time. PROBLEMS Problem Code Status Onset Date Coagulation defect, unspecified D68.9 Active October 01, 2023 Chronic viral hepatitis C B18.2 Active Ju ne 2023 Hypotension, unspecified I95.9 Active Apr il 2023 Other hyperlipidemia E78.49 Active Decembe r 2022 Encounter for immunization Z23 Active A ugust 2022 custodial (current) use of calcineurin inhibitor Z79.6 21 Active September 23, 2022 Headache, unspecified R51.9 Active August 222022 Fever, unspecified R50.9 Active September 09, 2022 Pruritus, unspecified L29.9 Active August 222022 Pain, unspecified R52 Active September 09 023 Nausea R11.0 Active September 09, 2022 Diarrhea, unspecified R19.7 Active August 222022 Secondary hyperparathyroidism of renal origin N25.81 Active September 09, 2022 Shortness of breath R06.02 Active September 09, 2022 Allergy, unspecified, initial encounter T78.40XA A ctive September 09, 2022 Anaphylactic shock, unspecified, initial encounter T78 .2XXA Active September 09, 2022 Encounter for screening for respiratory tuberculosis Z11.1 Active September 09, 2022 End stage renal disease N18.6 Active September 09, 2022 lobsterman (current) use of calcineurin inhibitor Z79.6 21 Active September 09, 2022 Hypertensive chronic kidney disease with stage 5 chronic kidney disease or end stage renal disease I12.0 Active September 09, 2022 Hypothyroidism, unspecified E03.9 Active September 09, 2022 Type 2 diabetes mellitus wit h diabetic chronic kidney disease E11.22 Active September 09, 2022 Chronic kidney disease, stage 5 N18.5 Active September 09, 2022 Liver transplant status Z94.4 Active September 09, 2022 Calculus of kidney N20.0 Active September 09, 2022 Benign prostatic hyperplasia without lower urinary tract symptoms N40.0 Active September 09, 2022 Iron deficiency anemia, unspecified D50.9 Activ e September 09, 2022 Anemia in chronic kidney disease D63.1 Active September 09, 2022 Dependence on renal dialysis Z99.2 Active September 09, 2022 ALLERGIES AND ADVERSE REACTIONS No Known Allergies SOCIAL HISTORY Tobacco Use Status Tobacco Type Unknown if ever consumed tobacco - Caregiver Characteristics No Information Available Characteristics of Home environment No Information Available Gender and Sex Information Gender Identity Sexual Orientation Male Heterosexual MEDICATIONS Prescribed Medications for Dialysis Treatments Medication Instructions Dosage Route Start Date End Date Stat Heparin Sodium (Porcine) 1,000 Units/mL Catheter Lock Arterial Every Treatment 2100 units Arterial Red Port January 31, 2024 January 29, 2025 Active Heparin Sodium (Porcine) 1,000 Units/mL Catheter Lock Venous Every Treatment 2200 units Venous Blue Port January 31, 2024 January 29, 2025 Active Iron Sucrose (Venofer) During Dialysis, 3X Week 100 mg Intravenous - push March 01, 2024 March 10, 2024 Active Midodrine HCl (Proamatine) PRN-june repeat x1 Hypotension 5 mg Oral June 02, 2023 May 31, 2024 Active Mircera During Dialysis, Every 4 weeks 30 mcg Intravenous - push March 01, 2024 February 28, 2025 Active Vitamin D (Calcitriol) Oral Every Treatment 0.5 mcg Oral March 06, 2024 March 05, 2025 Active Vitamin D (Calcitriol) Oral Every Treatment 0.25 mcg Oral November 05, 2023 November 03, 2024 Discontinued Home Medications Medication Instructions Dosage Route Start Date End Date Stat us apixaban 5 mg Take by mouth twice a day 1 tablet ORAL November 12, 2023 Active atorvastatin 40 mg Take by mouth once a day 1 tablet ORAL October 20, 2023 Active B12 Active 1,000 mcg Take by mouth once a day 1 tablet ORAL October 20, 2023 Active duloxetine 30 mg Take by mouth once a day 1 capsule ORAL October 20, 2023 Active ferrous sulfate 325 mg (65 mg iron) ORAL November 06, 2022 Active Fosrenol 1,000 mg Take by mouth three times a day with meals 1 tablet ORAL May 28, 2023 Active FreeStyle Lite Strips Unknown November 06, 2022 Active Lantus Solostar U-100 Insulin 100 unit/mL (3 mL) SUBCUTANEOUS November 06, 2022 Active Lantus U-100 Insulin 100 unit/mL SUBCUTANEOUS November 06, 2022 Active levetiracetam 500 mg Take by mouth twice a day 1 tablet ORAL October 20, 2023 Active levothyroxine 100 mcg Take by mouth once a day 1 tablet ORAL October 20, 2023 Active magnesium oxide 400 mg magnesium Take by mouth once a day 1 tablet ORAL October 20, 2023 Active midodrine 5 mg Take by mouth three times a day 1 tablet ORAL January 17, 2024 Active multivitamin Take by mouth once a day 1 tablet ORAL October 20, 2023 Active Novolog FlexPen U-100 Insulin 100 unit/mL (3 mL) SUBCUTANEOUS November 06, 2022 Active oxycodone 5 mg Take by mouth as needed for pain 1 tablet ORAL October 20, 2023 Active Remeron 15 mg Take by mouth as directed 1 tablet ORAL January 03, 2024 Active Renvela 800 mg Take by mouth three times a day 2 tablet ORAL November 12, 2023 Active tacrolimus 0.5 mg Take by mouth twice a day 1 capsule ORAL October 20, 2023 Active tacrolimus 1 mg Take by mouth twice a day 1 capsule ORAL October 20, 2023 Active VITAL SIGNS Post-Treatment Vital Signs Vital Sign Value Date / Time Blood Pressure-sitting 97/61 mmHg February 222024 10:19 AM Heart Rate 64 beats per minute March 06, 2024 10:19 AM Respiratory Rate 18 breaths per minute February 222024 10:19 AM Temperature 96.8 deg. F March 06, 2024 10:19 AM Weight Vital Sign Value Date / Time Estimated Dry Weight 93 kg February 28, 2024 11:59 PM Pre-Dialysis 96.80 kg March 06, 2024 10:19 AM Post-Dialysis 92.80 kg March 06, 2024 10:19 AM Other Other Value Date / Time Height 175.3 cm September 09, 2022 12 :00 AM Body Mass Index 30.69 kg/m2 February 21 12:04 PM [facility] LAB RESULTS Hematology Result Type Result Value Relevant Referen ce Range Interpretation Date UIBC/TIBC 151 mcg/dL 155 - 355 mcg/dL Low September TIBC (Calc) 225 mcg/dL 185 - 515 mcg/dL - September 29, 2023 Transferrin Sat. (Calc) 33 % 20 - 55 % - September 29, 2023 Ferritin 1223 ng/mL 22 - 322 ng/mL High September 29, 2023 Ferritin 1519 ng/mL 22 - 322 ng/mL High October 27, 2023 Transferrin Sat. (Calc) 23 % 20 - 55 % - October 26 TIBC (Calc) 230 mcg/dL 185 - 515 mcg/dL - er 2023 UIBC/TIBC 177 mcg/dL 155 - 355 mcg/dL - Octembe r 2023 Transferrin Sat. (Calc) 29 % 20 - 55 % - November 24, 2023 TIBC (Calc) 210 mcg/dL 185 - 515 mcg/dL - November 24, 2023 WBC (No Diff) 4.69 1000/mcL 4.80 - 10.80 1000/mcL Low November 24, 2023 Ferritin 585 ng/mL 22 - 322 ng/mL High November UIBC/TIBC 150 mcg/dL 155 - 355 mcg/dL Low November 24, 2023 Hemoglobin x 3 35.4 % 42.0 - 54.0 % Low December 08, 2023 Hemoglobin x 3 33 % 42.0 - 54.0 % Low December 15, 2023 Hemoglobin x 3 32.7 % 42.0 - 54.0 % Low December 22, 2023 Ferritin 1315 ng/mL 22 - 322 ng/mL High December TIBC (Calc) 216 mcg/dL 185 - 515 mcg/dL - Novembe r 2023 Transferrin Sat. (Calc) 34 % 20 - 55 % - December 28 Iron 74 mcg/dL 45 - 160 mcg/dL - December 29, 2023 UIBC/TIBC 142 mcg/dL 155 - 355 mcg/dL Low December 29, 2023 Hemoglobin x 3 34.2 % 42.0 - 54.0 % Low Novembe r 2023 Hemoglobin x 3 34.8 % 42.0 - 54.0 % Low Novembe r 2023 Hemoglobin x 3 37.5 % 42.0 - 54.0 % Low Novembe r 2023 Hemoglobin x 3 36.6 % 42.0 - 54.0 % Low [facility] r 2023 Hemoglobin x 3 33.9 % 42.0 - 54.0 % Low [facility] Ferritin 1330 ng/mL 22 - 322 ng/mL High January Iron 67 mcg/dL 45 - 160 mcg/dL - January 31, 2024 UIBC/TIBC 146 mcg/dL 155 - 355 mcg/dL Low January 31, 2024 TIBC (Calc) 213 mcg/dL 185 - 515 mcg/dL - [facility] 2023 Transferrin Sat. (Calc) 31 % 20 - 55 % - January 30 Hemoglobin x 3 32.7 % 42.0 - 54.0 % Low [facility] r 2023 Hemoglobin x 3 33.3 % 42.0 - 54.0 % Low [facility] r 2023 HGB 11.1 g/dL 14.0 - 18.0 g/dL Low February 09, 2024 HGB 11.1 g/dL 14.0 - 18.0 g/dL Low February 18, 2024 Hemoglobin x 3 33.3 % 42.0 - 54.0 % Low [facility] 2023 Hemoglobin x 3 33.6 % 42.0 - 54.0 % Low February 25, 2024 Retic HGB (CHr) 30.4 pg 25.4 - 31.8 pg - 2024 MCH 30.7 pg 27.0 - 31.0 pg - February RDW 14.4 % 11.5 - 14.5 % - February 25, 2024 MCHC 32.2 g/dL 30.0 - 36.0 g/dL - February 25, 2024 HGB 11.2 g/dL 14.0 - 18.0 g/dL Low February 25, 2024 Iron 54 mcg/dL 45 - 160 mcg/dL - February UIBC/TIBC 177 mcg/dL 155 - 355 mcg/dL - February 25, 2024 TIBC (Calc) 231 mcg/dL 185 - 515 mcg/dL - February 25, 2024 Transferrin Sat. (Calc) 23 % 20 - 55 % - February 25, 2024 WBC (No Diff) 5.49 1000/mcL 4.80 - 10.80 1000/mcL - February 25, 2024 Ferritin 1009 ng/mL 22 - 322 ng/mL High February HCT 34.8 % 42.0 - 52.0 % Low February 25, 2024 RBC 3.65 mill/mcL 4.70 - 6.10 mill/mcL Low February 25, 2024 HGB 11.2 g/dL 14.0 - 18.0 g/dL Low March 01, 2024 Hemoglobin x 3 33.6 % 42.0 - 54.0 % Low March 01, 2024 Metabolic/Renal Result Type Result Value Relevant Referen ce Range Interpretation Date Hemoglobin A1c 6.9 % 4.8 - 5.9 % High November Bicarbonate 22 mEq/L 22 - 29 mEq/L - December Creatinine, Serum 9.72 mg/dL 0.60 - 1.30 mg/dL High December 29, 2023 BUN/Creat Ratio 4.1 10.0 - 20.0 Low December 29, 2023 BUN 40 mg/dL 6 - 19 mg/dL High December 29, 2023 Chloride 97 mEq/L 96 - 108 mEq/L - December Sodium 137 mEq/L 136 - 145 mEq/L - December 29, 2023 Potassium 4.6 mEq/L 3.5 - 5.1 mEq/L - December 29, 2023 URR, Calc 75 % 65 - 80 % - December 28, 024 BUN, Post 10 mg/dL 6 - 19 mg/dL - December 29, 2023 Creatinine, Serum 12.73 mg/dL 0.60 - 1.30 mg/dL High January 31, 2024 Sodium 139 mEq/L 136 - 145 mEq/L - January 31, 2024 Potassium 5.8 mEq/L 3.5 - 5.1 mEq/L High January 31, 2024 Chloride 97 mEq/L 96 - 108 mEq/L - January Bicarbonate 21 mEq/L 22 - 29 mEq/L Low January BUN 83 mg/dL 6 - 19 mg/dL High February 18, 2024 BUN 47 mg/dL 6 - 19 mg/dL High February 22, 2024 BUN, Post 9 mg/dL 6 - 19 mg/dL - February 22, 2024 URR, Calc 81 % 65 - 80 % High February 21, 024 BUN 55 mg/dL 6 - 19 mg/dL High February 25, 2024 Creatinine, Serum 11.18 mg/dL 0.60 - 1.30 mg/dL High February 25, 2024 BUN/Creat Ratio 4.9 10.0 - 20.0 Low February 25, 2024 Hemoglobin A1c 6.7 % 4.8 - 5.9 % High February Sodium 137 mEq/L 136 - 145 mEq/L - February Potassium 4.8 mEq/L 3.5 - 5.1 mEq/L - February Chloride 94 mEq/L 96 - 108 mEq/L Low February Bicarbonate 24 mEq/L 22 - 29 mEq/L - February URR, Calc 78 % 65 - 80 % - February 24 BUN, Post 12 mg/dL 6 - 19 mg/dL - February 25, 2024 HD Adequacy Result Type Result Value Relevant Referen ce Range Interpretation Date Krt/V 0.00 No Reference Ran ge Provided - September 29, 2023 Krt/V 0.00 No Reference Ran ge Provided - October 27, 2023 Krt/V 0.00 No Reference Ran ge Provided - November 24, 2023 eKt/V ([place]) 1.40 No Reference Range Provided - December 29, 2023 wstdKt/V without residual 2.5 No Reference Range Provided - December 29, 2023 spKt/V (Daugirdas II) 1.61 No Reference Range Provided - December 29, 2023 spKt/V Gotch 1.64 No Reference Ran ge Provided - December 29, 2023 wstdKt/V 2.5 No Reference Ran ge Provided - December 29, 2023 Krt/V 0.00 No Reference Ran ge Provided - December 29, 2023 wstdKt/V, residual 0.0 No Reference Range Provided - December 29, 2023 spKt/V Gotch 1.89 No Reference Ran ge Provided - February 22, 2024 wstdKt/V, residual 0.0 No Reference Range Provided - February 22, 2024 wstdKt/V 2.7 No Reference Ran ge Provided - February 22, 2024 wstdKt/V without residual 2.7 No Reference Range Provided - February 22, 2024 spKt/V (Daugirdas II) 1.90 No Reference Range Provided - February 22, 2024 eKt/V ([place]) 1.67 No Reference Range Provided - February 22, 2024 Krt/V 0.00 No Reference Ran ge Provided - February 22, 2024 spKt/V Gotch 1.89 No Reference Ran ge Provided - February 25, 2024 eKt/V ([place]) 1.56 No Reference Range Provided - February 25, 2024 wstdKt/V without residual 2.6 No Reference Range Provided - February 25, 2024 spKt/V (Daugirdas II) 1.80 No Reference Range Provided - February 25, 2024 wstdKt/V 2.6 No Reference Ran ge Provided - February 25, 2024 Krt/V 0.00 No Reference Ran ge Provided - February 25, 2024 wstdKt/V, residual 0.0 No Reference Range Provided - February 25, 2024 Bone/Mineral Result Type Result Value Relevant Referen ce Range Interpretation Date Magnesium 2.3 mg/dL 1.6 - 2.6 mg/dL - March 31, 2023 Magnesium 2.3 mg/dL 1.6 - 2.6 mg/dL - April 28, 2023 Magnesium 2.4 mg/dL 1.6 - 2.6 mg/dL - May 26, 2023 Magnesium 2.7 mg/dL 1.6 - 2.6 mg/dL High June 22 Magnesium 2.1 mg/dL 1.6 - 2.6 mg/dL - July 28, 2023 Magnesium 2.3 mg/dL 1.6 - 2.6 mg/dL - August 25, 2023 PTH-Intact, Plasma 475 pg/mL 16 - 80 pg/mL High Sep us2023 Magnesium 2.2 mg/dL 1.6 - 2.6 mg/dL - September PTH-Intact, Plasma 506 pg/mL 16 - 80 pg/mL High Oct tember 2023 Magnesium 2.3 mg/dL 1.6 - 2.6 mg/dL - October 27, 2023 Vitamin D 25 Hydroxy 36.4 ng/mL 30.0 - 100.0 ng/mL - November 24, 2023 PTH-Intact, Plasma 459 pg/mL 16 - 80 pg/mL High Nov adelina 2023 Magnesium 2.4 mg/dL 1.6 - 2.6 mg/dL - November Alkaline Phosphatase 196 U/L 40 - 129 U/L High 2023 Corrected Ca x P Product 30 0 - December 28 Phosphorus 3.3 mg/dL 2.6 - 4.5 mg/dL - December 29, 2023 Ca x P Product 30 0 - December Calcium, Total 9.2 mg/dL 8.4 - 10.2 mg/dL - 2023 Magnesium 2.5 mg/dL 1.6 - 2.6 mg/dL - December 29, 2023 PTH-Intact, Plasma 453 pg/mL 16 - 80 pg/mL High Dec Calcium, Total 9.0 mg/dL 8.4 - 10.2 mg/dL - 2023 Phosphorus 4.4 mg/dL 2.6 - 4.5 mg/dL - January 31, 2024 Ca x P Product 40 0 - January Alkaline Phosphatase 155 U/L 40 - 129 U/L High 2023 PTH-Intact, Plasma 464 pg/mL 16 - 80 pg/mL High Jan Corrected Ca x P Product 40 0 - January 30 Magnesium 2.7 mg/dL 1.6 - 2.6 mg/dL High January 31, 2024 PTH-Intact, Plasma 656 pg/mL 16 - 80 pg/mL High Sam uary 2024 Calcium, Total 8.3 mg/dL 8.4 - 10.2 mg/dL Low Matt jax 2024 Phosphorus 5.5 mg/dL 2.6 - 4.5 mg/dL High February Ca x P Product 46 0 - - February Alkaline Phosphatase 180 U/L 40 - 129 U/L High nuary 2024 Corrected Ca x P Product 45 0 - February 25, 2024 Magnesium 2.7 mg/dL 1.6 - 2.6 mg/dL High February Liver/Nutrition Result Type Result Value Relevant Reference Range Interpre tation Date LDH 103 U/L 118 - 273 U/L Low November 24, 2023 SGPT (ALT) 27 U/L 7 - 52 U/L - December 28, 2 024 Albumin (BCG) 4.3 g/dL 3.5 - 5.2 g/dL - [facility] 2023 SGOT (AST) 16 U/L 13 - 39 U/L - December 29, 2023 eNPCR 0.73 No Reference Ran ge Provided - December 29, 2023 SGOT (AST) 14 U/L 13 - 39 U/L - January 31, 2024 SGPT (ALT) 8 U/L 7 - 52 U/L - January 30, 024 Albumin (BCG) 4.0 g/dL 3.5 - 5.2 g/dL - [facility]2023 eNPCR 0.73 No Reference Ran ge Provided - February 22, 2024 SGOT (AST) 25 U/L 13 - 39 U/L - February 24, 025 SGPT (ALT) 46 U/L 7 - 52 U/L - February 24 25 eNPCR 1.07 No Reference Ran ge Provided - February 25, 2024 Albumin (BCG) 4.1 g/dL 3.5 - 5.2 g/dL - February 25, 2024 Immunochemistry Result Type Result Value Relevant Reference Range Interpre tation HCV s/co ratio 9.37 0.00 - 0.79 High May 26, 2023 HCV s/co ratio 5.87 0.00 - 0.79 High November Endocrinology/Thyroid Result Type Result Value Relevant Referen ce Range Interpretation Date TSH 3rd Generation 5.921 mIU/L 0.300 - 3.000 mIU/L High May 26, 2023 TSH 3rd Generation 2.848 mIU/L 0.300 - 3.000 mIU/L - August 25, 2023 TSH 3rd Generation 6.426 mIU/L 0.300 - 3.000 mIU/L High November 24, 2023 TSH 3rd Generation 1.098 mIU/L 0.300 - 3.000 mIU/L - February 25, 2024 Trace Elements Result Type Result Value Relevant Reference Range Interpre tation Date Aluminum < 5 mcg/L 0 - 10 mcg/L - November 24, 2023 Infectious Diseases Result Type Result Value Relevant Referen ce Range Interpretation Date HCV, RNA, PCR, Quantitative Not Detected No Reference Range Provided - August 25, 2023 HCV Ab (anti-HCV) Reactive No Reference R abebe Provided Abnormal November 24, 2023 Hep B Surface Ab (anti-HBs) < 10 mIU/mL No Reference Range Provided - December 29, 2023 Hep B Surface Ag (HBsAg) Negative No Reference Range Provided - February 25, 2024 DIALYSIS PRESCRIPTION Conventional Hemodialysis Data Element Value Order Date/Time February 28, 2024 Frequency 3X Week Treatment Days MonWedFri Dialyzer [id number] Optiflux Treatment Time (Total Minutes) 240 min Blood Flow Rate (mL/min) 450 mL/min Dialysate Flow Rate Manual 800 Estimated Dry Weight 93 kg Dialysate Concentrate 2.0 K, 2.50 Ca, 1. 0 Mg, 100 Dextrose ([id number]) Sodium (mEq/L) 138 mEq/L Bicarb Machine Setting (mEq/L) 36 mEq/L Dialysis Access Hemodialysis-AV Efrain t-Synthetic - Standard (PTFE), Left Upper Arm, Brachial Artery to Brachial Vein Access Placed on July 10, 2022 Arterial Needle Size 15g1 Venous Needle Size 15g1 IMMUNIZATIONS Vaccine Date Dose Route Status HEPLISAV-B, Series 4 of October 27, 2023 20.0 mcg In tramuscular Completed HEPLISAV-B, Series 3 of 4 August 25, 2023 20.0 mcg Intramu scular Completed HEPLISAV-B, Series 2 of 4 July 28, 2023 20.0 mcg Intramu scular Completed HEPLISAV-B, Series 1 of June 23, 2023 20.0 mcg Intramus cular Completed HEPLISAV-B, Series 1 of October 28, 2022 20.0 mcg In tramuscular Completed PREVNAR October 05, 2022 0.5 mL Intramuscular Comple latha TRANSPLANT WAITLIST STATUS No Information on Transplant Waitlist Status ADVANCE DIRECTIVES Directive Description Ordered By Effective Date Resuscitation status Full Code Johnny Garlandhern Sep 09, 2023 DIALYSIS TREATMENTS Conventional Hemodialysis Date Pre-Treatment Vitals Post-Treatment Noemy ls Duration (hr) BFR (mL/min) Dialysate Dialyzer Dialysis Access Meds Admin 2024 Weight 94.60 kg Weight 92.70 kg 04:07:00 330 2.0 K, 2.50 Ca, 1.0 Mg, 100 Dextrose ([id number]) 160nre Optifl ux Blood Pressure-sitting 108/47 mmHg Blood Pressure-sit ting 113/94 mmHg Heart Rate 67 beats per minute Heart Rate 75 beats per minute Respiratory Rate 18 breaths per minute Respiratory Rate 20 breaths per minute Temperature 96.8 deg. F Temperature 97.0 deg. F March 03, 2024 Weight 94.70 kg Weight 93.40 kg 03:17:00 430 2.0 K, 2.50 Ca, 1.0 Mg, 100 Dextrose ([id number]) 160nre Optiflux Hemodialysis-AV Graft-Synthetic - Standard (PTFE), Left Upper Arm, Brachial Artery to Brachial Vein Access Placed on July 10, 2022 Heparin Sodium (Porcine) 1,000 Units/mL Catheter Lock Arterial; 2100units,Arterial Red [place] Heparin Sodium (Porcine) 1,000 Units/mL Catheter Lock Venous; 2200units,Venous [place] Iron Sucrose (Venofer); 100mg,Intravenous - push Vitamin D (Calcitriol) Oral; 0.25mcg,Oral Blood Pressure-sitting 120/76 mmHg Blood Pressure-sit ting 123/61 mmHg Heart Rate 62 beats per minute Heart Rate 79 beats per minute Respiratory Rate 18 breaths per minute Respiratory Rate 18 breaths per minute Temperature 96.8 deg. F Temperature 96.0 deg. F March 06, 2024 Weight 96.80 kg Weight 92.80 kg 04:01:00 450 2.0 K, 2.50 Ca, 1.0 Mg, 100 Dextrose ([id number]) 160nre Optiflux Hemodialysis-AV Graft-Synthetic - Standard (PTFE), Left Upper Arm, Brachial Artery to Brachial Vein Access Placed on July 10, 2022 Heparin Sodium (Porcine) 1,000 Units/mL Catheter Lock Arterial; 2100units,Arterial Red [place] Heparin Sodium (Porcine) 1,000 Units/mL Catheter Lock Venous; 2200units,Venous [place] Iron Sucrose (Venofer); 100mg,Intravenous - push Vitamin D (Calcitriol) Oral; 0.5mcg,Oral Blood Pressure-sitting 147/67 mmHg Blood Pressure-sit ting 97/61 mmHg Heart Rate 64 beats per minute Heart Rate 64 beats per minute Respiratory Rate 18 breaths per minute Respiratory Rate 18 breaths per minute Temperature 99.2 deg. F Temperature 96.8 deg. F
--- OUTSIDE RECORDS SUMMARY | 2024-03-07 09:31 | XMS_ITS | Continuity of Care Document ---
Author Organization [facility] Address [address] [place] [address]- Support Name Relationship Address Phone MAXIMUS, MESHA Personal Relationship Unknown Unava ilable MAXIMUS, MESHA Personal Relationship Unknown Unava ilable MAXIMUS, MESHA Personal Relationship Unknown Unava ilable MAXIMUS, MESHA P Personal Relationship Unknown Nadiya vailable MAXIMUS, MESHA Personal Relationship Unknown Unava ilable MAXIMUS, MESHA Personal Relationship Unknown Unava ilable MAXIMUS, MESHA Personal Relationship Unknown Unava ilable MAXIMUS, MESHA Personal Relationship Unknown Unava ilable MAXIMUS, MESHA Personal Relationship Unknown Unava ilable MAXIMUS, MESHA Personal Relationship Unknown Unava ilable MAXIMUS, MESHA Personal Relationship Unknown Unava ilable MAXIMUS, MESHA Personal Relationship Unknown Unava ilable MAXIMUS, DIANA child Unknown Unavailable MAXIMUS, MESHA Personal Relationship Unknown Unava ilable MAXIMUS, MESHA Personal Relationship Unknown Unava ilable MAXIMUS, MESHA Personal Relationship Unknown Unava ilable MAXIMUS, MESHA Personal Relationship Unknown Unava ilable MAXIMUS, MESHA Personal Relationship Unknown Unava ilable MAXIMUS, MESHA Personal Relationship Unknown Unava ilable MAXIMUS, MESHA Personal Relationship Unknown Unava ilable MAXIMUS, MESHA Personal Relationship Unknown Unava ilable MAXIMUS, MESHA Personal Relationship Unknown Unava ilable MAXIMUS, MESHA Personal Relationship Unknown Unava ilable MAXIMUS, MESHA Personal Relationship Unknown Unava ilable MAXIMUS, MESHA Personal Relationship Unknown Unava ilable MAXIMUS, MESHA Personal Relationship Unknown Unava ilable MAXIMUS, MESHA Personal Relationship Unknown Unava ilable MAXIMUS, MESHA Personal Relationship Unknown Unava ilable MAXIMUS, MESHA Personal Relationship Unknown Unava ilable MAXIMUS, MESHA Personal Relationship Unknown Unava ilable MAXIMUS, MESHA Personal Relationship Unknown Unava ilable MAXIMUS, MESHA Personal Relationship Unknown Unava ilable MAXIMUS, MESHA Personal Relationship Unknown Unava ilable MAXIMUS, MESHA spouse Unknown Unavailable MAXIMUS, MESHA Personal Relationship Unknown Unava ilable MAXIMUS, ELINOR child Unknown Unavailable MAXIMUS, MESHA Personal Relationship Unknown Unava ilable MAXIMUS, MESHA Personal Relationship Unknown Unava ilable MAXIMUS, MESHA Personal Relationship Unknown Unava ilable MAXIMUS, MESHA Personal Relationship Unknown Unava ilable MAXIMUS, MESHA Personal Relationship Unknown Unava ilable MAXIMUS, MESHA Personal Relationship Unknown Unava ilable MAXIMUS, MESHA Personal Relationship Unknown Unava ilable MAXIMUS, MESHA Personal Relationship Unknown Unava ilable MAXIMUS, MESHA Personal Relationship Unknown Unava ilable MAXIMUS, MESHA Personal Relationship Unknown Unava ilable MAXIMUS, MESHA Personal Relationship Unknown Unava ilable MAXIMUS, MESHA Personal Relationship Unknown Unava ilable MAXIMUS, MESHA Personal Relationship Unknown Unava ilable Care Team Providers Care Field Property Loss Specialist Name Role Phone Vida Goodwin Primary Care Physician [place] [facility]/18[place] - 02/17/24 [facility] [address] [place] [address] Encounter Type: Triage Allergies, Adverse Reactions, Alerts Substance Criticality Severity Reaction Reaction Severity Status ibuprofen kidney disease, liver transplant GI upset Active aspirin GI upset Active cyclobenzaprine confusion Acti ve gabapentin agitattion Active Ativan confusion Active Vicodin confusion Active Immunizations Given and Recorded Vaccine Date Status Refusal Reason pneumococcal 23-valent vaccine 12/11/12 Given Medications amLODIPine 10 mg oral tablet 10 mg, 1, tablet, By Mouth, Daily, Refills 0, Maintenance, 05/18/18 1:36:09 PM EDT Start Date: 05/18/18 Status: Ordered Repeat number: 1 Cannabis (Schedule I Substance) 0 Refills, Maintenance, 06/23/16 7:54:18 AM EDT Start Date: 06/23/16 Status: Ordered Repeat number: 1 duloxetine 30 mg oral enteric coated capsule 1 capsule = 30 mg, By Mouth, 2 times a day, 0 Refills, Maintenance, 05/18/18 1:36:40 PM EDT Start Date: 05/18/18 Status: Ordered Repeat number: 1 famotidine 20 mg oral tablet 20 mg, 1, tablet, By Mouth, 2 times a day, PRN, # 60 tablet, Refills 6, Tot. Refills 6, Maintenance, heart burn, 01/11/24 8:18:00 AM EST, Route to Pharmacy Electronically, [id number], Partial fill upon patient request if the prescription is for a schedule II opioid drug., 176.4, cm, 01/11/24 7:54:00 EST, Height, 95.4, kg, 09/02/22 11:12:00 EDT, Dry Weight Start Date: 01/11/24 Status: Ordered Quantity: 60.0 Unit: tablet Repeat number: 7 Indication: Gastro-esophageal reflux disease without esophagitis Golytely - oral powder for reconstitution See Instructions, Per instructions from GI., # 4,000 mL, 0 Refills, Maintenance, 01/11/24 8:18:00 AM EST, [id number], Partial fill upon patient request if the prescription is for a schedule II opioid drug., Per instructions from GI., 176.4, cm, 01/11/24 7:54:00 EST, Height, 95.4, kg, 09/02/22 11:12:00 EDT, Dry Weight Start Date: 01/11/24 Status: Ordered Quantity: 4000.0 Unit: mL Repeat number: 1 Indication: Encounter for screening for malignant neoplasm of colon Lantus Inj 50 iu, Subcutaneous Infusion, 0 Refills, Maintenance, 05/25/16 8:06:53 AM EDT Start Date: 05/25/16 Status: Ordered Repeat number: 1 levETIRAcetam 500 mg oral tablet 2 times a day, 0 Refills, Maintenance, 07/08/22 12:14:00 PM EDT, Partial fill upon patient request if the prescription is for a schedule II opioid drug. Start Date: 07/08/22 Status: Ordered Repeat number: 1 levothyroxine 0.05 mg oral tablet 1 tablet = 50 mcg, By Mouth, Daily, 0 Refills, Maintenance, 05/25/16 7:56:30 AM EDT Start Date: 05/25/16 Status: Ordered Repeat number: 1 lisinopril 5 mg oral tablet 5 mg, 1, tablet, By Mouth, Daily, # 30 tablet, Refills 0, Maintenance, 05/18/18 1:35:54 PM EDT Start Date: 05/18/18 Status: Ordered Quantity: 30.0 Unit: tablet Repeat number: 1 Multivitamin Daily, 0 Refills, Maintenance, 05/18/18 1:35:34 PM EDT Start Date: 05/18/18 Status: Ordered Repeat number: 1 NovoLOG 100 units/mL injectable solution Subcutaneous Infusion, 3 times a day before meals, 0 Refills, Maintenance, 05/18/18 1:36:48 PM EDT Start Date: 05/18/18 Status: Ordered Repeat number: 1 Pen Aurora, 31 G x 5 mm BD Ultra Fine III See Instructions, # 120 each, Refills 5, Tot. Refills 5, Maintenance, use four times daily to test blood sugars dx e11.9, 06/06/18 1:51:26 PM EDT, Compound Start Date: 06/06/18 Stop Date: 12/03/18 Status: Ordered Quantity: 120.0 Unit: each Repeat number: 6 Prograf 1 mg oral capsule 1 capsule = 1 mg, By Mouth, Every 12 hours, 0 Refills, Maintenance, 05/18/18 1:35:26 PM EDT Start Date: 05/18/18 Status: Ordered Repeat number: 1 Vitamin B12 Methylcobalamin 5000 mcg sublingual tablet Sublingual, Daily, 0 Refills, Maintenance, 05/18/18 1:36:26 PM EDT Start Date: 05/18/18 Status: Ordered Repeat number: 1 Problem List Condition Confirmation Course Effective Dates Status Health St atus Informant Medical marijuana use Confirmed Active Diabetes mellitus Confirmed Active Former cigarette smoker Confirmed Active Limitation due to disability 1 Confirmed Active Drug or alcohol risk assessment or counseling 2 Confirmed Active History of anxiety Confirmed Active Liver transplant status Confirmed 2018 Active Hand pain Confirmed Active History of alcohol abuse Confirmed Active Neck pain Confirmed Active Nonspecific chest pain Confirmed Active Obese class I Confirmed Active Upper extremity pain Confirmed Active Shoulder pain Confirmed Active 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 Hepatitis C Confirmed Active 1initial Neck Disability Index: 62% on 06/23/16; initial [place]: 4 on 06/23/16 2SOAPP-R: 22 on 06/23/16 Social History Social History Type Response Smoking Status Former smoker; Other : quit 35 years ago; entered on: 06/23/16 Sex Sex Representation Male (finding) Patient Care team information Care Team Personnel Name: Kelly Cordon Position: [facility] Outreach Member Role: Lifetime Consulting Physician Name: Chioma Oneal NP Position: [facility] Associate Professional Member Role: Lifetime Consulting Provider Address: [address] [facility] [place] [address]- [place] [employer]: Name: Wily Francois MD Position: [facility] Renal MD Member Role: Lifetime Consulting Physician Address: [address] [facility] [place] [address]- [place] [employer]: Name: Vida Goodwin Position: [facility] Outreach Member Role: PCP Address: [address] [facility] [place] [address]- Tele[employer]: Name: Sloan Fine MD Position: [facility] Outreach Member Role: Lifetime Consulting Physician Address: [address] [facility] [place] [address]- Tele[employer]: Care Team Related Persons Name: ELINOR STROUD Name: DIANA STROUD Name: MESHA STROUD Insurance Providers Guarantor name: DIANA STROUD Health Plan Information #: 1 Payer: NA Member Number: NA Policy Number: NA Group Number: NA
--- OUTSIDE RECORDS SUMMARY | 2024-03-07 09:32 | XMS_ITS | Clinical Summary ---
Author Organization Unknown Care Team Providers Care Tutoring Manager Name Role Phone KATHERINE PAN, HOLDEN Unavailable Unavailable ANSLEY CHAVIRA, GHASSAN Unavailable Unavailable Payers Payer Name Policy Type Policy Number Effective Date Expira tion Date MEDICARE.NGS.PDGM [id number] Problems Condition Name Condition Details Condition Category Status Onset Date Resolution Date Last Treatment Date Treating Clinician Comments TYPE 2 DIABETES MELLITUS WITH DIABETIC POLYNEUROPAT HY Active 2021-02 00:00: 00 TYPE 2 DIABETES MELLITUS W DIABETIC CHRONIC KIDNEY DISEASE Active 2021-02 00:00: 00 CHRONIC KIDNEY DISEASE, STAGE 4 (SEVERE) Active 2021-02 00:00: 00 ESSENTIAL (PRIMARY) HYPERTENSION Active 02-22 00:00: 00 EPILEPSY, UNSP, NOT INTRACTABLE, WITHOUT STATUS EPILEPTICUS Active 02-22 00:00: 00 HYPOTHYROIDI SM, UNSPECIFIED Active 02-22 00:00: 00 BENIGN PROSTATIC HYPERPLASIA WITHOUT LOWER URINRY TRACT SYMP Active 02-22 00:00: 00 TYPE 2 DIABETES W UNSP DIABETIC RTNOP W/O MACULAR EDEMA Active 08-19 00:00: 00 GASTRO-ESOPH AGEAL REFLUX DISEASE WITHOUT ESOPHAGITIS Active 08-19 00:00: 00 UNSPECIFIED VIRAL HEPATITIS C WITHOUT HEPATIC COMA Active 03-30 00:00: 00 MORBID (SEVERE) OBESITY DUE TO EXCESS CALORIES Active 09-30 00:00: 00 BODY MASS INDEX [BMI] 38.0-38.9, ADULT Active 08-19 00:00: 00 CANNABIS USE, UNSPECIFIED, UNCOMPLICATE D Active 08-19 00:00: 00 ALCOHOL DEPENDENCE, IN REMISSION Active 08-19 00:00: 00 HISTORY OF FALLING Active 02-22 00:00: 00 DETECTIVE [facility] (CURRENT) USE OF INSULIN Active 2021-02 00:00: 00 FDC (CURRENT) USE OF OPIATE ANALGESIC Active 02-22 00:00: 00 [facility] (CURRENT) USE OF ASPIRIN Active 2021-02 00:00: 00 PRSNL HX OF TIA (TIA), AND CEREB INFRC W/O RESID DEFICITS Active 02-22 00:00: 00 LIVER TRANSPLANT STATUS Active 08-13 00:00: 00 PERSONAL HISTORY OF NICOTINE DEPENDENCE Active 08-19 00:00: 00 Allergies, Adverse Reactions, Alerts Allergy Name Allergy Type Status Severity Reaction(s) Onset Date Inactive Date Treating Clinician Comments ANACIN Propensity to adverse reactions Active 2021-02 08:33: 31 ASPIRIN Propensity to adverse reactions Active 2021-02 08:33: 37 GABAPENTIN Propensity to adverse reactions Active 2021-02 08:33: 47 IBUPROFEN Propensity to adverse reactions Active 2021-02 08:33: 55 LYRICA Propensity to adverse reactions Active 2021-02 08:34: 02 VICODIN Propensity to adverse reactions Active 2021-02 08:34: 09 Medications Ordered Medication Name Filled Medication Name Start Date Stop Date Current Medication? Ordering Clinician Indication Dosage Frequency Signature (SIG) Comments Components duloxetine 30 mg capsule,del ayed release 2021-02 00:00: 00 Yes [id number] DEPRESSION 1 capsule DAILY 1 capsule DAILY (route: oral) Med Classific ation: Central Nervous System Agents tacrolimus 0.5 mg capsule, immediate-r elease 2021-02 00:00: 00 Yes [id number] ANTIREJECTI ON 1 capsule EVERY 12 HOURS 1 capsule EVERY 12 HOURS (route: oral) Med Classific ation: Immunosup pressive Agents tacrolimus 1 mg capsule, immediate-r elease 2021-02 00:00: 00 Yes [id number] ANTIREJECTI ON 1 capsule EVERY 12 HOURS 1 capsule EVERY 12 HOURS (route: oral) Med Classific ation: Immunosup pressive Agents atorvastati n 40 mg tablet 2021-02 00:00: 00 Yes [id number] CHOLESTEROL 1 tablet DAILY 1 tablet DAILY (route: oral) Med Classific ation: Cardiovas cular Therapy Agents oxycodone 5 mg tablet 2021-02 00:00: 00 Yes [id number] RESTLESS LEGS 1-2 tablet BEDTIME 1-2 tablet BEDTIME (route: oral) Med Classific ation: Analgesic , Anti-infl ammatory or Antipyret ic amlodipine 10 mg tablet 2021-02 00:00: 00 Yes [id number] BLOOD PRESSURE 1 tablet DAILY 1 tablet DAILY (route: oral) Med Classific ation: Cardiovas cular Therapy Agents Aspirin Childrens 81 mg chewable tablet 2021-02 00:00: 00 Yes [id number] BLOOD THINNER 1 tablet DAILY 1 tablet DAILY (route: oral) Med Classific ation: Hematolog ical Agents chlorthalid one 25 mg tablet 2021-02 00:00: 00 Yes [id number] DIURETIC 1 tablet DAILY 1 tablet DAILY (route: oral) Med Classific ation: Cardiovas cular Therapy Agents Colace 100 mg capsule 2021-02 00:00: 00 Yes [id number] CONSTIPATIO N 1 capsule DAILY 1 capsule DAILY (route: oral) Med Classific ation: Gastroint estinal Therapy Agents furosemide 20 mg tablet 2021-02 00:00: 00 Yes [id number] DIURETIC 1 tablet DAILY 1 tablet DAILY (route: oral) Med Classific ation: Cardiovas cular Therapy Agents hydralazine 25 mg tablet 2021-02 00:00: 00 Yes [id number] BLOOD PRESSURE 1 tablet 3 TIMES DAILY 1 tablet 3 TIMES DAILY (route: oral) Med Classific ation: Cardiovas cular Therapy Agents Lantus Solostar U-100 Insulin 100 unit/mL (3 mL) subcutaneou s pen 2021-02 00:00: 00 Yes [id number] BLOOD SUGAR 8 unit BEDTIME 8 unit BEDTIME (route: subcutaneo us) Med Classific ation: Endocrine levetiracet am 500 mg tablet 2021-02 00:00: 00 Yes [id number] SEIZURES 1 tablet EVERY 12 HOURS 1 tablet EVERY 12 HOURS (route: oral) Med Classific ation: Central Nervous System Agents levothyroxi ne 75 mcg tablet 2021-02 00:00: 00 Yes [id number] THYROID 1 tablet DAILY 1 tablet DAILY (route: oral) Med Classific ation: Endocrine lisinopril 20 mg tablet 2021-02 00:00: 00 Yes [id number] BLOOD PRESSURE 2 tablet DAILY 2 tablet DAILY (route: oral) Med Classific ation: Cardiovas cular Therapy Agents magnesium 400 mg (as magnesium oxide) tablet 2021-02 00:00: 00 Yes [id number] SUPPLEMENT 1 tablet DAILY 1 tablet DAILY (route: oral) Med Classific ation: Electroly te Balance-N utritiona l Products multivitami n tablet 2021-02 00:00: 00 Yes [id number] SUPPLEMENT 1 tablet DAILY 1 tablet DAILY (route: oral) Med Classific ation: Electroly te Balance-N utritiona l Products Novolog Flexpen U-100 Insulin aspart 100 unit/mL (3 mL) subcutaneou s 2021-02 00:00: 00 01-16 23:59 :00 No [id number] BLOOD SUGAR 14-18 unit 3 TIMES DAILY 14-18 unit 3 TIMES DAILY (route: subcutaneo us) Med Classific ation: Endocrine Pepcid 20 mg tablet 2021-02 00:00: 00 Yes [id number] STOMACH ACID 1 tablet DAILY 1 tablet DAILY (route: oral) Med Classific ation: Gastroint estinal Therapy Agents Senna-Time S 8.6 mg-50 mg tablet 2021-02 00:00: 00 Yes [id number] CONSTIPATIO N 2 tablet DAILY 2 tablet DAILY (route: oral) Med Classific ation: Gastroint estinal Therapy Agents tamsulosin 0.4 mg capsule 2021-02 00:00: 00 Yes [id number] URINATION 1 capsule DAILY 1 capsule DAILY (route: oral) Med Classific ation: Genitouri nary Therapy Vitamin D3 25 mcg (1,000 unit) capsule 2021-02 00:00: 00 Yes [id number] SUPPLEMENT 1 capsule DAILY 1 capsule DAILY (route: oral) Med Classific ation: Electroly te Balance-N utritiona l Products GENERLAC ORAL 02-24 00:00: 00 05-07 16:58 :59 No 10 gram/15 mL 10 gram/15 mL (route: ) Med Classific ation: GASTROINT ESTINAL THERAPY AGENTS LEVOTHYROXI NE ORAL 2016-02 00:00: 00 05-07 16:59 :27 No 50 mcg 50 mcg (route: ) Med Classific ation: ENDOCRINE OXYCODONE-A CETAMINOPHE N ORAL 03-22 00:00: 00 05-07 17:00 :12 No 5-325 mg 5-325 mg (route: ) Med Classific ation: ANALGESIC , ANTI-INFL AMMATORY OR ANTIPYRET IC OXYCODONE-A CETAMINOPHE N ORAL 2016-02 00:00: 00 05-07 17:00 :17 No 5-325 mg 5-325 mg (route: ) Med Classific ation: ANALGESIC , ANTI-INFL AMMATORY OR ANTIPYRET IC MYCOPHENOLA TE MOFETIL ORAL 05-07 00:00: 00 06-03 00:00 :00 No 500 [id number] 2 TIMES DAILY 500 [id number] 2 TIMES DAILY (route: ) Med Classific ation: ANALGESIC , ANTI-INFL AMMATORY OR ANTIPYRET IC RANITIDINE ORAL 2016-02 00:00: 00 05-07 17:00 :22 No 150 mg 150 mg (route: ) Med Classific ation: GASTROINT ESTINAL THERAPY AGENTS LISINOPRIL ORAL 2016-02 00:00: 00 05-07 17:00 :02 No 40 mg 40 mg (route: ) Med Classific ation: CARDIOVAS CULAR THERAPY AGENTS BACLOFEN ORAL 03-18 00:00: 00 05-07 16:58 :04 No 10 mg1tab 3 TIMES DAILY 10 mg1tab 3 TIMES DAILY (route: ) Med Classific ation: LOCOMOTOR SYSTEM TACROLIMUS ORAL 05-07 00:00: 00 05-14 00:00 :00 No 1 [id number] 2 TIMES DAILY 1 [id number] 2 TIMES DAILY (route: ) Med Classific ation: IMMUNOSUP PRESSIVE AGENTS TACROLIMUS ORAL 05-14 00:00: 00 05-20 00:00 :00 No 1 [id number] 2 TIMES DAILY 1 ya1qfrh 2 TIMES DAILY (route: ) Med Classific ation: IMMUNOSUP PRESSIVE AGENTS METFORMIN ORAL 3-12 00:00: 00 05-07 17:00 :08 No 500 mg 500 mg (route: ) Med Classific ation: ENDOCRINE CEPHALEXIN ORAL 2016-02 2-11 00:00: 00 05-07 16:58 :27 No 500 mg 500 mg (route: ) Med Classific ation: ANTI-INFE CTIVE AGENTS TRULICITY SUBCUTANEOU S 16 00:00: 00 05-07 17:00 :26 No 0.75 mg/0.5 mL 0.75 mg/0.5 mL (route: ) Med Classific ation: ENDOCRINE Vital Signs Vital Name Observation Time Observation Value Commen ts Temperature 2022-03-10 09:54:00.000 98.4 [degF] Temperature 2022-02-25 11:15:00.000 97.6 [degF] Temperature 2022-02-17 10:58:00.000 97.5 [degF] Temperature 2022-02-10 14:44:00.000 98.2 [degF] Temperature 2022-02-03 12:05:00.000 97.5 [degF] Temperature 2022-01-29 09:36:00.000 97.8 [degF] Temperature 2022-01-23 13:44:00.000 97.5 [degF] Temperature 2022-01-20 14:37:00.000 97.9 [degF] Temperature 2022-01-16 11:34:00.000 97.1 [degF] Temperature 2022-01-13 14:24:00.000 99.2 [degF] BMI (%) 2022-01-13 14:24:00.000 37 kg/m2 Height 2022-01-13 14:24:00.000 69 [in_us] Pulse 2022-03-10 09:54:00.000 86 /min Pulse 2022-02-25 11:15:00.000 98 /min Pulse 2022-02-17 10:58:00.000 68 /min Pulse 2022-02-10 14:44:00.000 78 /min Pulse 2022-02-03 12:05:00.000 76 /min Pulse 2022-01-29 09:36:00.000 66 /min Pulse 2022-01-23 13:44:00.000 83 /min Pulse 2022-01-20 14:37:00.000 87 /min Pulse 2022-01-16 11:34:00.000 74 /min Pulse 2022-01-13 14:24:00.000 80 /min O2 Saturation (%) 2022-03-10 09:58:00.000 98 % O2 Saturation (%) 2022-02-25 11:15:00.000 98 % O2 Saturation (%) 2022-02-17 10:58:00.000 95 % O2 Saturation (%) 2022-02-03 12:05:00.000 97 % O2 Saturation (%) 2022-01-29 09:36:00.000 98 % O2 Saturation (%) 2022-01-23 13:44:00.000 98 % O2 Saturation (%) 2022-01-20 14:38:00.000 97 % O2 Saturation (%) 2022-01-16 11:34:00.000 96 % O2 Saturation (%) 2022-01-13 14:24:00.000 97 % Respirations 2022-03-10 09:54:00.000 16 /min Respirations 2022-02-25 11:15:00.000 18 /min Respirations 2022-02-17 10:58:00.000 18 /min Respirations 2022-02-10 14:44:00.000 16 /min Respirations 2022-02-03 12:05:00.000 18 /min Respirations 2022-01-29 09:36:00.000 18 /min Respirations 2022-01-23 13:44:00.000 18 /min Respirations 2022-01-20 14:37:00.000 18 /min Respirations 2022-01-16 11:34:00.000 18 /min Respirations 2022-01-13 14:24:00.000 18 /min Weight (lbs) 2022-02-10 14:49:00.000 221.2 [lb_av] Weight (lbs) 2022-01-13 14:24:00.000 251 [lb_av] Systolic Blood Pressure 2022-03-10 09:54:00.000 150 mm [Hg] Systolic Blood Pressure 2022-02-25 11:15:00.000 132 mm [Hg] Systolic Blood Pressure 2022-02-17 11:01:00.000 140 mm [Hg] Systolic Blood Pressure 2022-02-10 14:44:00.000 160 mm [Hg] Systolic Blood Pressure 2022-02-03 12:05:00.000 138 mm [Hg] Systolic Blood Pressure 2022-01-29 09:36:00.000 132 mm [Hg] Systolic Blood Pressure 2022-01-23 13:44:00.000 148 mm [Hg] Systolic Blood Pressure 2022-01-20 14:37:00.000 160 mm [Hg] Systolic Blood Pressure 2022-01-16 11:34:00.000 118 mm [Hg] Systolic Blood Pressure 2022-01-13 14:24:00.000 176 mm [Hg] Diastolic Blood Pressure 2022-03-10 09:54:00.000 74 mm [Hg] Diastolic Blood Pressure 2022-02-25 11:15:00.000 70 mm [Hg] Diastolic Blood Pressure 2022-02-17 11:01:00.000 68 mm [Hg] Diastolic Blood Pressure 2022-02-10 14:44:00.000 72 mm [Hg] Diastolic Blood Pressure 2022-02-03 12:05:00.000 70 mm [Hg] Diastolic Blood Pressure 2022-01-29 09:36:00.000 70 mm [Hg] Diastolic Blood Pressure 2022-01-23 13:44:00.000 78 mm [Hg] Diastolic Blood Pressure 2022-01-20 14:37:00.000 78 mm [Hg] Diastolic Blood Pressure 2022-01-16 11:34:00.000 74 mm [Hg] Diastolic Blood Pressure 2022-01-13 14:24:00.000 82 mm [Hg] Plan of Treatment Planned Activity Planned Date Details Comments Future Scheduled Test SKILLED NU RSE TO ASSESS, EVALUATE, AND DEVELOP AN INDIVIDUALIZED PLAN OF CARE. AGENCY MAY ACCEPT ORDERS FROM CONSULTING PHYSICIANS SN TO OBSERVE/ASSESS RISK FOR FALLS AND INSTRUCT IN FALL PREVENTION, HOME SAFETY, MEDICATION MANAGEMENT, INFECTION PREVENTION, AND NUTRITION MANAGEMENT. SN MAY PERFORM O2 SATURATION LEVEL ON ADMISSION AND PRN TO ASSESS PATIENT, WITH NOTIFICATION TO THE PHYSICIAN IF SATURATION IS 90% IN THE ABSENCE OF MORE SPECIFIC PARAMETERS FROM THE PHYSICIAN. AGENCY MAY PERFORM A RESUMPTION OF CARE VISIT FOLLOWING ANY HOSPITAL ADMISSION. SKILLED NURSE TO ASSESS/EVALUATE CO-MORBID CONDITIONS AND ANY NEW CONDITIONS THAT PRESENT THEMSELVES DURING THIS EPISODE TO IDENTIFY CHANGES AND INTERVENE TO MINIMIZE COMPLICATIONS. [code = SKILLED NURSE TO ASSESS, EVALUATE, AND DEVELOP AN INDIVIDUALIZED PLAN OF CARE. AGENCY MAY ACCEPT ORDERS FROM CONSULTING PHYSICIANS SN TO OBSERVE/ASSESS RISK FOR FALLS AND INSTRUCT IN FALL PREVENTION, HOME SAFETY, MEDICATION MANAGEMENT, INFECTION PREVENTION, AND NUTRITION MANAGEMENT. SN MAY PERFORM O2 SATURATION LEVEL ON ADMISSION AND PRN TO ASSESS PATIENT, WITH NOTIFICATION TO THE PHYSICIAN IF SATURATION IS 90% IN THE ABSENCE OF MORE SPECIFIC PARAMETERS FROM THE PHYSICIAN. AGENCY MAY PERFORM A RESUMPTION OF CARE VISIT FOLLOWING ANY HOSPITAL ADMISSION. SKILLED NURSE TO ASSESS/EVALUATE CO-MORBID CONDITIONS AND ANY NEW CONDITIONS THAT PRESENT THEMSELVES DURING THIS EPISODE TO IDENTIFY CHANGES AND INTERVENE TO MINIMIZE COMPLICATIONS.] Future Scheduled Test RISK FOR H OSPITALIZATION; SKILLED NURSE TO INSTRUCT PATIENT/CAREGIVER ON RISK FOR HOSPITALIZATION, TEACH SIGNS AND SYMPTOMS THAT PUT PATIENT AT RISK, WHEN TO NOTIFY NURSE OF COMPLICATIONS/DECLINE, AND WHEN TO CALL 911. SKILLED NURSE TO INSTRUCT PATIENT/CAREGIVER ON: SIGNS AND SYMPTOMS TO BE ON ALERT FOR EARLY INTERVENTION, PRIOR TO NEEDING EMERGENCY SERVICES CALL [facility] NURSE TO KEEP LICENSED FUNERAL DIRECTOR SYMPTOM REPORT FOR VISIBLE REFERENCE NOTIFY SKILLED NURSE/PHYSICIAN FOR DECLINE IN STATUS WHEN AND HOW TO CALL HOME HEALTH AGENC[facility] FACILITATE PHYSICIAN FOLLOW UP APPOINTMENT IDENTIFY SOCIOECONOMIC CONCERNS AND MAKE APPROPRIATE REFERRAL NEEDED [code = RISK FOR HOSPITALIZATION; SKILLED NURSE TO INSTRUCT PATIENT/CAREGIVER ON RISK FOR HOSPITALIZATION, TEACH SIGNS AND SYMPTOMS THAT PUT PATIENT AT RISK, WHEN TO NOTIFY NURSE OF COMPLICATIONS/DECLINE, AND WHEN TO CALL 911. SKILLED NURSE TO INSTRUCT PATIENT/CAREGIVER ON: SIGNS AND SYMPTOMS TO BE ON ALERT FOR EARLY INTERVENTION, PRIOR TO NEEDING EMERGENCY SERVICES CALL [facility] NURSE TO KEEP LICENSED FUNERAL DIRECTOR SYMPTOM REPORT FOR VISIBLE REFERENCE NOTIFY SKILLED NURSE/PHYSICIAN FOR DECLINE IN STATUS WHEN AND HOW TO CALL HOME HEALTH AGENCY FACILITATE PHYSICIAN FOLLOW UP APPOINTMENT IDENTIFY SOCIOECONOMIC CONCERNS AND MAKE APPROPRIATE REFERRAL NEEDED] Future Scheduled Test MEDICATION MANAGEMENT; SKILLED NURSE TO REVIEW MEDICATIONS FOR INTERACTIONS, EFFECTIVENESS OF DRUG THERAPY, AND SIGNS/SYMPTOMS OF ADVERSE REACTIONS. MAY INSTRUCT AND REINFORCE MEDICATION TEACHING RELATED TO THE USE OF MEDICATIONS, DOSAGE, FREQUENCY, PURPOSE, SIDE EFFECTS, AND TO REPORT COMPLICATIONS. [code = MEDICATION MANAGEMENT; SKILLED NURSE TO REVIEW MEDICATIONS FOR INTERACTIONS, EFFECTIVENESS OF DRUG THERAPY, AND SIGNS/SYMPTOMS OF ADVERSE REACTIONS. MAY INSTRUCT AND REINFORCE MEDICATION TEACHING RELATED TO THE USE OF MEDICATIONS, DOSAGE, FREQUENCY, PURPOSE, SIDE EFFECTS, AND TO REPORT COMPLICATIONS.] Future Scheduled Test CARDIOVASC ULAR SYSTEM; SKILLED NURSE TO ASSESS AND TEACH RELATED TO ALTERED CARDIOVASCULAR STATUS TO MINIMIZE COMPLICATIONS AND REDUCE HOSPITALIZATION. [code = CARDIOVASCULAR SYSTEM; SKILLED NURSE TO ASSESS AND TEACH RELATED TO ALTERED CARDIOVASCULAR STATUS TO MINIMIZE COMPLICATIONS AND REDUCE HOSPITALIZATION.] Future Scheduled Test HYPERTENSI ON MANAGEMENT; SKILLED NURSE TO ASSESS/TEACH WARNING SIGNS AND SYMPTOMS TO AVOID HOSPITALIZATION. [code = HYPERTENSION MANAGEMENT; SKILLED NURSE TO ASSESS/TEACH WARNING SIGNS AND SYMPTOMS TO AVOID HOSPITALIZATION.] Future Scheduled Test PAIN MANAG EMENT; SKILLED NURSE TO OBSERVE, ASSESS, AND PROVIDE EDUCATION ON PAIN MANAGEMENT TECHNIQUES. [code = PAIN MANAGEMENT; SKILLED NURSE TO OBSERVE, ASSESS, AND PROVIDE EDUCATION ON PAIN MANAGEMENT TECHNIQUES.] Future Scheduled Test DIABETES M ANAGEMENT; SKILLED NURSE FOR INSTRUCTIONS OF DIABETIC CARE TO INCLUDE: DIET DM, LOW SODIUM SKIN CARE, SIGNS AND SYMPTOMS OF HYPO/HYPERGLYCEMIA, PROPER ADMINISTRATION OF DIABETIC MEDICATION. SKILLED NURSE TO INSTRUCT ON DIABETIC FOOT CARE AND MONITOR FOR SKIN LESIONS ON LOWER EXTREMITIES. BLOOD GLUCOSE TESTING 2X DAILY FREQ. SKILLED NURSE TO ASSESS PATIENT/CAREGIVER ABILITY TO PERFORM AND RECORD BLOOD GLUCOSE TESTING ORDERED AND TO REPORT ABNORMAL FINDINGS TO PHYSICIAN. SKILLED NURSE MAY PERFORM BLOOD GLUCOSE TEST NEEDED. SKILLED NURSE TO REPORT TO PHYSICIAN BLOOD GLUCOSE READINGS GREATER THAN 350 OR LESS THAN 70 SKILLED NURSE TO INSTRUCT PATIENT ON IMPORTANCE OF HGBA1C MONITORING, KIDNEY FUNCTION TEST, EYE AND FOOT EXAMS. [code = DIABETES MANAGEMENT; SKILLED NURSE FOR INSTRUCTIONS OF DIABETIC CARE TO INCLUDE: DIET DM, LOW SODIUM SKIN CARE, SIGNS AND SYMPTOMS OF HYPO/HYPERGLYCEMIA, PROPER ADMINISTRATION OF DIABETIC MEDICATION. SKILLED NURSE TO INSTRUCT ON DIABETIC FOOT CARE AND MONITOR FOR SKIN LESIONS ON LOWER EXTREMITIES. BLOOD GLUCOSE TESTING 2X DAILY FREQ. SKILLED NURSE TO ASSESS PATIENT/CAREGIVER ABILITY TO PERFORM AND RECORD BLOOD GLUCOSE TESTING ORDERED AND TO REPORT ABNORMAL FINDINGS TO PHYSICIAN. SKILLED NURSE MAY PERFORM BLOOD GLUCOSE TEST NEEDED. SKILLED NURSE TO REPORT TO PHYSICIAN BLOOD GLUCOSE READINGS GREATER THAN 350 OR LESS THAN 70 SKILLED NURSE TO INSTRUCT PATIENT ON IMPORTANCE OF HGBA1C MONITORING, KIDNEY FUNCTION TEST, EYE AND FOOT EXAMS.] Future Scheduled Test FALL REDUC TION MANAGEMENT; NURSING TO PROVIDE SKILLED ASSESSMENT, EDUCATION, AND INTERVENTION TO IDENTIFY FALL RISK FACTORS SUCH MEDICATIONS THAT MAY CAUSE DIZZINESS, CHRONIC DISEASES, PSYCHOLOGICAL FACTORS, AND EMPOWER/EDUCATE PATIENT/CAREGIVER TO MINIMIZE FALL RISK. [code = FALL REDUCTION MANAGEMENT; NURSING TO PROVIDE SKILLED ASSESSMENT, EDUCATION, AND INTERVENTION TO IDENTIFY FALL RISK FACTORS SUCH MEDICATIONS THAT MAY CAUSE DIZZINESS, CHRONIC DISEASES, PSYCHOLOGICAL FACTORS, AND EMPOWER/EDUCATE PATIENT/CAREGIVER TO MINIMIZE FALL RISK.] Goal 2022-03-10 Patient Goal - G ET BACK TO [facility]OOKING DOING STUFF Goal Provider Goal - A PLAN OF CARE WILL BE ESTABLISHED THAT MEETS THE PATIENTS NEEDS. PATIENT WILL DEMONSTRATE OXYGEN SATURATION WITHIN NORMAL LIMITS OR PATIENTS OPTIMAL LEVEL ESTABLISHED BY THE PHYSICIAN THROUGHOUT CARE. CHANGES TO CO-MORBID CONDITIONS AND ANY NEW CONDITIONS WILL BE IDENTIFIED AND REPORTED TO THE PHYSICIAN. Goal Provider Goal - PATIENT/CAREGIVER WILL VERBALIZE UNDERSTANDING OF SIGNS AND SYMPTOMS THAT PUT THE PATIENT AT RISK FOR HOSPITALIZATION, WHEN TO NOTIFY SN OF COMPLICATIONS/DECLINE AND WHEN TO CALL 911. Goal Provider Goal - PATIENT/CAREGIVER TO VERBALIZE, AND CONSISTENTLY DEMONSTRATE EFFECTIVE, SAFE MANAGEMENT OF MEDICATION INCLUDING KNOWLEDGE OF EFFECTIVENESS, POTENTIAL SIDE EFFECTS AND DRUG REACTIONS AND WHEN TO CONTACT THE APPROPRIATE CARE PROVIDER. PATIENT/CAREGIVER WILL BE ABLE TO VERBALIZE UNDERSTANDING OF MEDICATION REGIMEN AND ACCURATELY TAKE MEDICATIONS PRESCRIBED WITHOUT ADVERSE EFFECTS BY DISCHARGE Goal Provider Goal - PATIENT / CAREGIVER WILL VERBALIZE/DEMONSTRATE UNDERSTANDING OF MEASURES TO MANAGE ALTERED CARDIOVASCULAR STATUS BY DISCHARGE Goal Provider Goal - PATIENT / CAREGIVER WILL VERBALIZE/DEMONSTRATE AN ABILITY TO ADHERE TO SELF-MANAGEMENT OF HTN TO MINIMIZE COMPLICATIONS AND AVOID HOSPITALIZATION BY END OF EPISODE. Goal Provider Goal - PATIENT / CAREGIVER WILL VERBALIZE / DEMONSTRATE UNDERSTANDING OF PAIN CONTROL MEASURES BY DISCHARGE Goal Provider Goal - PATIENT / CAREGIVER WILL VERBALIZE / DEMONSTRATE AN ABILITY TO ADHERE TO SELF-MANAGEMENT OF DIABETES MANAGEMENT BY DISCHARGE Goal Provider Goal - PATIENT/CAREGIVER ABLE TO IDENTIFY FALL RISK FACTORS AND IMPLEMENT STRATEGIES TO MINIMIZE FALL RISK. PATIENT/CAREGIVER WILL VERBALIZE/DEMONSTRATE AN ABILITY TO ADHERE TO FALL REDUCTION SELF MANAGEMENT AND LIFE-STYLE CHANGES AT DISCHARGE. PERSONAL GOAL(S) STATED BY PATIENT/CAREGIVER WILL BE MET BY DISCHARGE Reason for Visit INDEPENDENT IN THE HOME Encounters Start Date/Time End Date/Time Encounter Type Admission Type Attending [facility] Care Department Encounter ID Discharge Date Discharge Status Discharge Condition Discharge Reason Percent Goals Met 2022-01-13 00:00:00 2022-03-10 00:00:00 Outpatient [facility]IRE[facility] [id number] 2022-03-10 00:00:00 DISCHARGE TO HOME OR SELF CARE INDEPENDEN T IN THE HOME HH OR [facility]- GOALS MET 58.62
[2024-03-07 10:22] VITALS: BMI 30.8
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
== END 2024-03-07 11:21 | disposition home or self-care (01) ==
PROVIDERS: PCP Physician Assistant; Visit Provider Nurse Practitioner Family
DX: M25.512 Pain in left shoulder (principal); G25.81 Restless legs syndrome; R56.9 Unspecified convulsions; G45.9 Transient cerebral ischemic attack, unspecified
CPT/HCPCS: 99214

== ENCOUNTER → 2024-03-07 08:59 | Outpatient (BNVA) | payer OTHER, SELFPAY | PROVIDERS: PCP Physician Assistant; Visit Provider Nurse Practitioner Family | DX: M25.512 Pain in left shoulder (principal); G25.81 Restless legs syndrome; G45.9 Transient cerebral ischemic attack, unspecified; R56.9 Unspecified convulsions | CPT/HCPCS: 99212 ==